=== PATIENT | male | born 1960 | race African-American/Black ===

== ENCOUNTER 2020-01-16 11:05 | Inpatient (IN) | payer OTHER ==
[~2020-01-16] VITALS: Ht 203.2 cm; Wt 146.0 kg
[~2020-01-16 11:05] MED LIST: CIP500T GT; FURO1TAB31 PO; POTA10TA51 PO
[2020-01-16] MEDS ORDERED: SODIUM CHLORIDE 0.9% 1,000 ML IVB ONE (13:02)
[2020-01-16] MEDS ORDERED: ONDANSETRON HCL 4 MG/2 ML VIAL IV ONE (13:15)
[2020-01-16] MEDS ORDERED: MORPHINE SULF INJ 2 MG/ML SYRINGE 1ML IV ONE (13:15)
[2020-01-16] MEDS ORDERED: cefTRIAXone 1GM/50ML D5W 50 ML IV ONE (13:15)
[2020-01-16 14:04] LABS: Basophils # (auto) 0 10 ^3/uL (0-0.2); Eosinophils # (auto) 0.1 10 ^3/uL (0-0.8); Eosinophils % (auto) 0.4 % (0.0-7.0); Hematocrit 37.8 % (41.0-53.0); Hemoglobin 12.1 g/dL (13.5-17.5); Lymphocytes # (auto) 0.6 10 ^3/uL (0.4-5.4); Lymphocytes % (auto) 3.9 % (10.0-50.0); Mean Corpuscular Hemoglobin 29.1 pg (28.0-32.0); Mean Corpuscular Volume 91.1 fL (80.0-100.0); Monocytes # (auto) 1.3 10 ^3/uL (0-1.3); Monocytes % (auto) 9.3 % (0.0-12.0); Neutrophils # (auto) 12.5 10 ^3/uL (1.6-8.6); Neutrophils % (auto) 86.4 % (37.0-80.0); Platelet Count (auto) 191 10^3/uL (140-450); Red Blood Cells 4.15 10^6/uL (4.5-5.90); White Blood Cell 14.5 10^3/uL (4.4-10.8)
[2020-01-16 14:28] LABS: Albumin 2.4 g/dL (3.4-5.0); Calcium 8.1 mg/dL (8.5-10.1); Potassium 3.2 mmol/L (3.5-5.1)
[2020-01-16 14:31] LABS: BUN/Creatinine Ratio 8.7; Bilirubin, Total 1.4 mg/dL (0.2-1.0); Total Protein 7.9 g/dL (6.4-8.2)
[2020-01-16 14:44] LABS: INR 1.04 (0.9-1.15); Partial Thromboplastin Time 28.1 sec (23.64-32.05)
[2020-01-16] MEDS ORDERED: POTASSIUM CHL 20 Meq TABLET PO ONE (15:00)
[2020-01-16] MEDS ORDERED: VANCOMYCIN PER PHARMACY 0 MG IV SCH (15:15)
--- NOTE | 2020-01-16 16:42 | NUR ---
RECEIVED REPORT FROM RUPALI SPENCE IN ER. AWAITING PATIENTS ARRIVAL TO FLOOR
--- NOTE | 2020-01-16 17:00 | NUR ---
PATIENT IN ROOM ON [facility] FLOOR. PATIENT HAS 2 GUARDS AT BEDSIDE. NO DISTRESS NOTED AT THIS TIME. PATIENT IS ALERT AND ORIENTED X 4 WITH NO DISTRESS, SOB OR PAIN NOTED. VITALS WNL.
[2020-01-16 17:15] VITALS: BP 126/68
[2020-01-16] MEDS: VANCOMYCIN 1GM/250ML 250 ML IV SCH ×2 (17:59→23:03)
[2020-01-16 18:11] VITALS: BP 126/68
--- NOTE | 2020-01-16 19:00 | NUR ---
Assessed skin, did wound care and took wound photos.
--- NOTE | 2020-01-16 19:05 | NUR ---
Opening Shift Note Assumed care of patient, awake and alert. No S/S of distress/SOB or pain. Instructed on POC and to call for assist PRN, will continue to monitor for changes Q1hr and PRN. Patient in the lowest possible position with call light within reach. Addendum: 01/16/20 at 2143 by Sara Sapp RN guards at bedside.
[2020-01-16 19:36] LABS: Urine Bacteria FEW /hpf (None Seen); Urine Blood 1+ /uL (Negative); Urine Mucus FEW (None Seen); Urine WBC 5 /hpf (0 - 3)
[2020-01-16 20:00] VITALS: BP 121/59
[2020-01-16] MEDS: BACLOFEN 10 MG TAB PO SCH (21:28)
[2020-01-16] MEDS: POTASSIUM CHL 20 Meq TABLET PO SCH (21:28)
--- NOTE | 2020-01-16 21:30 | NUR ---
Skin was assessed, Optifoam applied to ankle near cuffs to prevent any skin tears, everywhere else was properly dressed and secured. Waiting for wound care to evaluate patient in the AM, day nurse assessed, took photos, and dressed. Patient states that his cellulitis is going down with the use of the antibiotics. Will continue to monitor lower extremities.
[2020-01-16 22:00] VITALS: BP 121/59
[2020-01-16] MEDS ORDERED: FUROSEMIDE 20 MG/2 ML VIAL IV SCH (22:00)
--- NOTE | 2020-01-16 23:45 | NUR ---
Condom cath applied since Marie was not recommended per physician. Per physician condom cath was okay to put on patient. Patient is taking Lasix. Will continue to monitor patient.
--- NOTE | 2020-01-17 03:42 | NUR ---
Patient used bedside commode to poop, condom cath fell off.
[2020-01-17 05:00] VITALS: BP 124/56
[2020-01-17] MEDS: VANCOMYCIN 1GM/250ML 250 ML IV SCH ×4 (05:14→23:16)
--- NOTE | 2020-01-17 08:00 | NUR ---
Opening Shift Note Assumed care of patient, awake, alert and oriented. No S/S of distress/SOB or pain. Instructed on POC and to call for assist PRN. Bed locked, in lowest position, call light within reach, side rails up x2. Will continue to monitor for changes Q1hr and PRN.
--- NOTE | 2020-01-17 08:05 | NUR ---
Call received from [facility] for update on patient. Password verified, update given, verbalized understanding.
[2020-01-17] MEDS ORDERED: FUROSEMIDE 100 MG/10ML VIAL IV SCH (08:46)
[2020-01-17 09:28] VITALS: BP 115/60
[2020-01-17] MEDS: BACLOFEN 10 MG TAB PO SCH ×2 (11:14→21:22)
[2020-01-17] MEDS: ENOXAPARIN SOD 150 MG/1 ML SYRINGE SC SCH (11:14)
[2020-01-17] MEDS: POTASSIUM CHL 20 Meq TABLET PO SCH ×2 (11:16→21:22)
--- NOTE | 2020-01-17 12:30 | NUR ---
WOUND CARE NOTE: IN TO SEE PATIENT AT THIS TIME PER WOUND CARE CONSULT REQUEST. PATIENT ADMITTED TO [facility] WITH DIAGNOSIS OF CELLULITIS, BILATERAL LOWER EXTREMITY EDEMA. CURRENT KISHORE SCORE IS 15. PATIENT NOTED TO HAVE MULTIPLE WOUNDS UPON ADMIT, ALL WOUNDS PHOTOGRAPHED AT THAT TIME BY BEDSIDE NURSE FOR REFERENCE. PATIENT STATES THAT HE HAS HAD SKIN/WOUND ISSUES TO HIS BLE FOR MANY YEARS. CURRENTLY, HIS WOUNDS HAVE WORSENED. PATIENT IS NOTED TO HAVE A LARGE SERUM FILLED BLISTER TO ENTIRE LEFT PLANTAR, LATERAL,MEDIAL FOOT. SKIN IS WHITE WITH MACERATION. THERE IS A CHRONIC STASIS ULCER TO THE LEFT DORSAL FOOT, AND AN OPEN SKIN TEAR TO THE LEFT LATERAL FOOT. LEFT FOOT/MASON IS EDEMATOUS, WITH ERYTHEMA, WEEPING OF THE TISSUES. CLEANSED ALL AREAS WITH WOUND CLEANSER, PATTED DRY WITH STERILE GAUZE. APPLIED THERAHONEY GAUZE. COVERED WITH MULTIPLE ABD PADS. WRAPPED FOOT/ANKLE/LOWER MASON WITH KERLIX, SECURED WITH TAPE. NEW WOUND PHOTO TAKEN AT THIS TIME FOR REFERENCE. RIGHT MASON/ANKLE HAS MULTIPLE VENOUS STASIS ULCERATIONS OVER EDEMA, ERYTHEMA. CLEANSED ALL WITH WOUND CLEANSER, PATTED DRY WITH STERILE GAUZE. APPLIED THERAHONEY, OPTIFOAM GENTLE DRESSINGS. WOUND PHOTOS TAKEN OF THESE WOUNDS PER PROTOCOL. ALL WOUND STATS CAN BE FOUND IN WOUND ASSESSMENT, LINKED WITH THIS NOTE. RECOMMEND: PODIATRY CONSULT FOR BLE, DAILY/PRN DRESSING CHANGES WITH THERAHONEY, ABD PADS, KERLIX WRAPS, BID APPLICATION WITH MOISTURE BARRIER CREAM, OPTIFOAM GENTLE SACRAL DRESSING PREVENTATIVE, SKIN/WOUND CARE PLAN, DIETARY CONSULT, CONTINUED MONITORING BY WOUND CARE TEAM. Addendum: 01/17/20 at 1617 by Renée Ruiz RN Amended: Links added.
[2020-01-17 13:34] LABS: Basophils # (auto) 0 10 ^3/uL (0-0.2); Basophils % (auto) 0.4 % (0.0-2.0); Eosinophils # (auto) 0.6 10 ^3/uL (0-0.8); Eosinophils % (auto) 5.5 % (0.0-7.0); Hematocrit 35.3 % (41.0-53.0); Hemoglobin 11.5 g/dL (13.5-17.5); Lymphocytes # (auto) 0.9 10 ^3/uL (0.4-5.4); Lymphocytes % (auto) 8.6 % (10.0-50.0); Mean Corpuscular Hemoglobin 29.6 pg (28.0-32.0); Mean Corpuscular Hgb Conc. 32.7 g/dL (32.0-36.0); Mean Corpuscular Volume 90.7 fL (80.0-100.0); Monocytes # (auto) 0.9 10 ^3/uL (0-1.3); Monocytes % (auto) 8.4 % (0.0-12.0); Neutrophils # (auto) 8.3 10 ^3/uL (1.6-8.6); Neutrophils % (auto) 77.1 % (37.0-80.0); Nucleated Red Blood Cells % 0.1 %; Platelet Count (auto) 192 10^3/uL (140-450); Red Blood Cells 3.89 10^6/uL (4.5-5.90); Red Cell Distribution Width 14.3 % (11.8-14.3); White Blood Cell 10.8 10^3/uL (4.4-10.8)
[2020-01-17 13:50] LABS: BUN/Creatinine Ratio 8.1; Calcium 7.6 mg/dL (8.5-10.1); Potassium 3.5 mmol/L (3.5-5.1)
[2020-01-17 13:57] VITALS: BP 108/55
[2020-01-17 16:35] VITALS: BP 93/52
[2020-01-17] MEDS: FUROSEMIDE 100 MG/10ML VIAL IV SCH (17:59)
--- NOTE | 2020-01-17 19:21 | NUR ---
Care endorsed to JORDY Reyes, night nurse.
--- NOTE | 2020-01-17 20:20 | NUR ---
open note assumed care of pt. upon entering room pt awake, alert and oriented x4. pt has guards at bedside. pt on room air no distress noted or expressed. pt denies any pain. pt updated on plan of care. pt has dressings to bilat lower extremities, all clean dry and intact. pt bed locked, low and 2x rails up. call light in reach, this nurse to round q1hr and prn.
[2020-01-17 21:00] VITALS: BP 99/55
[2020-01-18 04:30] VITALS: BP 120/64
[2020-01-18] MEDS: VANCOMYCIN 1GM/250ML 250 ML IV SCH ×2 (05:39→15:12)
[2020-01-18] MEDS: FUROSEMIDE 100 MG/10ML VIAL IV SCH ×2 (05:40→17:30)
--- NOTE | 2020-01-18 08:00 | NUR ---
Opening Shift Note Assumed care of patient, awake and alert. No S/S of distress/SOB or pain. Instructed on POC and to call for assist PRN, will continue to monitor for changes Q1hr and PRN.
[2020-01-18 08:45] VITALS: BP 107/54
[2020-01-18] MEDS: POTASSIUM CHL 20 Meq TABLET PO SCH ×2 (09:47→22:17)
[2020-01-18] MEDS: ENOXAPARIN SOD 150 MG/1 ML SYRINGE SC SCH (09:47)
[2020-01-18] MEDS: BACLOFEN 10 MG TAB PO SCH ×2 (10:05→22:17)
[2020-01-18 12:30] VITALS: BP 114/56
--- NOTE | 2020-01-18 15:31 | NUR ---
Nutrition Assessment Notes Please refer to link for full assessment notes. Est Energy needs: 5350-2518 kcals (14-17 kcal/kgBW) Est Protein needs: 138-173 gms/day (1.2-1.5 gm/kgAdjBW) Will continue to monitor and reassess prn. Addendum: 01/18/20 at [address] Amended: Links added.
--- NOTE | 2020-01-18 16:25 | NUR ---
Spoke with Dr. Pineda, updated on the current status of the patient and results of the tests. Orders received for cardiology consult to call in for Dr. Pizarro.
[2020-01-18 16:40] VITALS: BP 116/62
--- NOTE | 2020-01-18 19:35 | NUR ---
Opening Shift Note Assumed care of patient, awake and alert and sitting up in bed. No S/S of distress/SOB or pain. Guards at bedside. Instructed on POC and to call for assist PRN, will continue to monitor for changes Q1hr and PRN.
[2020-01-18 21:45] VITALS: BP 111/52
[2020-01-19] MEDS: VANCOMYCIN 1GM/250ML 250 ML IV SCH ×3 (01:13→17:28)
--- NOTE | 2020-01-19 02:15 | NUR ---
WOUND CARE OFFERED PT PAIN MEDICATION BEFORE DRESSING CHANGE. PT DECLINED. CLEANSED ALL AREAS WITH WOUND CLEANSER, PATTED DRY WITH STERILE GAUZE. APPLIED THERAHONEY GAUZE. COVERED WITH MULTIPLE ABD PADS. WRAPPED FOOT/ANKLE/LOWER MASON WITH KERLIX, SECURED WITH TAPE. PT TOLERATED WELL.
[2020-01-19 05:04] VITALS: BP 113/62
[2020-01-19] MEDS: FUROSEMIDE 100 MG/10ML VIAL IV SCH ×4 (05:55→22:02)
--- NOTE | 2020-01-19 06:34 | NUR ---
CLOSING NOTE PT. IS UPRIGHT IN BED. HE IS SLEEPING. GUARDS AT BEDSIDE. ENDORSED TO DAY RN.
--- NOTE | 2020-01-19 07:45 | NUR ---
Opening Shift Note Assumed care of patient, awake, alert, and oriented. No S/S of distress/SOB or pain. Bed in lowest/locked position, bed rails up x2, call light within reach. Guards at bedside. Instructed on POC and to call for assist PRN. Will continue to monitor for changes Q1hr and PRN.
[2020-01-19 08:48] VITALS: BP 102/55
[2020-01-19] MEDS: ENOXAPARIN SOD 150 MG/1 ML SYRINGE SC SCH (08:59)
[2020-01-19] MEDS: POTASSIUM CHL 20 Meq TABLET PO SCH ×4 (08:59→22:01)
[2020-01-19] MEDS: BACLOFEN 10 MG TAB PO SCH ×2 (08:59→22:01)
--- NOTE | 2020-01-19 11:40 | NUR ---
MD ROUNDS DR FOWLER AT BEDSIDE DISCUSSING POC WITH PATIENT. NO NEW ORDERS RECEIVED AT THIS TIME. WILL CONTINUE TO MONITOR
--- NOTE | 2020-01-19 11:55 | NUR ---
PHARMACY RECEIVED PHONE CALL FROM PHARMACY RE: PATIENT WOUND CULTURE SHOWING GRAM NEGATIVE RODS. PER PHARMACIST INFORM MD TO ASSESS ANTIBIOTIC ADMINISTRATION. DR FOWLER AT NURSING STATION MADE AWARE OF GRAM NEGATIVE RODS. NEW ORDERS RECEIVED/ WILL CARRY OUT. WILL CONTINUE TO MONITOR
[2020-01-19 13:00] VITALS: BP 100/52
[2020-01-19] MEDS: PIPERACILLIN-TAZOB 3.375GM 100 ML IV SCH ×2 (13:14→18:27)
[2020-01-19 17:00] VITALS: BP 125/64
--- NOTE | 2020-01-19 19:45 | NUR ---
OPENING NOTE RN ENDORSED PT. CARE. PT. ASLEEP IN BED. GUARDS AT BEDSIDE. DID NOT WAKE. WILL CONTINUE TO MONITOR.
[2020-01-19 22:00] VITALS: BP 116/66
[2020-01-20] MEDS: PIPERACILLIN-TAZOB 3.375GM 100 ML IV SCH ×4 (00:04→17:32)
--- NOTE | 2020-01-20 00:35 | NUR ---
WOUND CARE REMOVED OLD DRESSINGS AND CLEANSED ALL AREAS WITH WOUND CLEANSER. PATTED DRY WITH STERILE GAUZE. APPLIED THERAHONEY GAUZE. MOISTURE BARRIER CREAM LOTION APPLIED TO DRY AREAS. COVERED WITH MULTIPLE ABD PADS. WRAPPED FOOT/ANKLE/LOWER MASON WITH KERLIX, SECURED WITH TAPE. PT TOLERATED WELL.
[2020-01-20] MEDS: VANCOMYCIN 1GM/250ML 250 ML IV SCH ×2 (02:14→09:52)
[2020-01-20 04:00] VITALS: BP 110/57
[2020-01-20] MEDS: FUROSEMIDE 100 MG/10ML VIAL IV SCH ×3 (05:40→21:54)
[2020-01-20] MEDS: POTASSIUM CHL 20 Meq TABLET PO SCH ×3 (05:41→21:55)
[2020-01-20 09:00] VITALS: BP 105/62
[2020-01-20 09:09] LABS: Basophils # (auto) 0 10 ^3/uL (0-0.2); Basophils % (auto) 0.6 % (0.0-2.0); Eosinophils # (auto) 0.4 10 ^3/uL (0-0.8); Eosinophils % (auto) 7.9 % (0.0-7.0); Hematocrit 34.4 % (41.0-53.0); Hemoglobin 11.4 g/dL (13.5-17.5); Lymphocytes # (auto) 0.8 10 ^3/uL (0.4-5.4); Mean Corpuscular Hemoglobin 30.2 pg (28.0-32.0); Mean Corpuscular Hgb Conc. 33.3 g/dL (32.0-36.0); Mean Corpuscular Volume 90.7 fL (80.0-100.0); Monocytes # (auto) 0.4 10 ^3/uL (0-1.3); Monocytes % (auto) 7.9 % (0.0-12.0); Neutrophils # (auto) 3.6 10 ^3/uL (1.6-8.6); Neutrophils % (auto) 68.6 % (37.0-80.0); Nucleated Red Blood Cells % 0.1 %; Platelet Count (auto) 246 10^3/uL (140-450); Red Blood Cells 3.79 10^6/uL (4.5-5.90); Red Cell Distribution Width 14.3 % (11.8-14.3); White Blood Cell 5.3 10^3/uL (4.4-10.8)
[2020-01-20 09:20] LABS: BUN/Creatinine Ratio 10.6; Calcium 7.7 mg/dL (8.5-10.1); Potassium 3.7 mmol/L (3.5-5.1)
[2020-01-20] MEDS: ENOXAPARIN SOD 150 MG/1 ML SYRINGE SC SCH (09:52)
[2020-01-20] MEDS: BACLOFEN 10 MG TAB PO SCH ×2 (09:52→21:55)
[2020-01-20 13:00] VITALS: BP 105/51
--- NOTE | 2020-01-20 13:30 | NUR ---
PAIN PATIENT C/O "SPINE PAIN, RADIATING PRESSURE, 03/28." WILL MEDICATE PER MD ORDERS
[2020-01-20] MEDS: HYDROcodone-ACET 10/325MG TAB PO PRN (13:41)
[2020-01-20 17:04] VITALS: BP 98/54
--- NOTE | 2020-01-20 19:16 | NUR ---
Opening Shift Note Assumed care of patient, awake and alert. No S/S of distress/SOB or pain. Instructed on POC and to call for assist PRN, will continue to monitor for changes Q1hr and PRN. Side rails up x2. Bed locked in lowest position. Call light within reach. 2 guards at bedside. Handcuffs on right wrist and bilateral ankles.
[2020-01-20 22:00] VITALS: BP 99/53
[2020-01-21] MEDS: PIPERACILLIN-TAZOB 3.375GM 100 ML IV SCH ×5 (00:57→23:59)
[2020-01-21 05:00] VITALS: BP 113/56
--- NOTE | 2020-01-21 05:00 | NUR ---
Dressing changed on bilateral foot. Patient tolerated well.
[2020-01-21] MEDS: POTASSIUM CHL 20 Meq TABLET PO SCH ×3 (05:50→21:55)
[2020-01-21] MEDS: FUROSEMIDE 100 MG/10ML VIAL IV SCH ×3 (05:51→22:00)
[2020-01-21] MEDS: HYDROcodone-ACET 10/325MG TAB PO PRN ×3 (05:52→22:48)
[2020-01-21 07:31] LABS: BUN/Creatinine Ratio 15.2; Calcium 7.9 mg/dL (8.5-10.1); Potassium 4.2 mmol/L (3.5-5.1)
--- NOTE | 2020-01-21 07:37 | NUR ---
Endorsed care to day shift RN.
--- NOTE | 2020-01-21 08:17 | NUR ---
TAKEN VIA WHEEL CHAIR TO NUCLEAR MEDICINE FOR BONE SCAN. NO SIGNS OF DISTRESS.
[2020-01-21 09:00] VITALS: BP 96/54
[2020-01-21] MEDS: BACLOFEN 10 MG TAB PO SCH ×3 (09:34→21:56)
[2020-01-21] MEDS: ENOXAPARIN SOD 150 MG/1 ML SYRINGE SC SCH (09:34)
[2020-01-21] MEDS: levoFLOXacin 500 MG TAB PO SCH ×2 (09:35→13:46)
[2020-01-21] MEDS ORDERED: fentaNYL CITRATE 100 MCG/2 ML VL ONE (10:18)
[2020-01-21] MEDS ORDERED: ANGIOMAX 250 MG VIAL IV ONE (10:18)
[2020-01-21] MEDS ORDERED: MIDAZOLAM HCL 1MG/1ML-2 ML VIAL ONE (10:19)
[2020-01-21] MEDS ORDERED: LIDOCAINE 2%HCL (LOCAL ANESTH.) INJ 20ML MDV ONE (10:19)
[2020-01-21] MEDS ORDERED: IODIXANOL 320MG/ML 100ML BTL IV ONE (10:19)
[2020-01-21] MEDS ORDERED: SODIUM CHL 0.9% 0 ML ONE (10:19)
[2020-01-21] MEDS ORDERED: VERAPAMIL 2.5MG/ML INJ 2ML VIAL IV ONE (10:34)
[2020-01-21] MEDS ORDERED: diphenhdrAMINE HCL 50 MG/1 ML VL ONE (10:39)
[2020-01-21] MEDS ORDERED: HYDROmorphone HCL 2 MG/ML VL ONE (10:46)
[2020-01-21] MEDS ORDERED: HEPARIN SODIUM (PORCINE) 5000 UNITS/ML 1ML VIAL ONE (10:57)
[2020-01-21 13:00] VITALS: BP 129/79
[2020-01-21 17:00] VITALS: BP 110/61
--- NOTE | 2020-01-21 19:45 | NUR ---
Opening shift note Assumed care of patient. Patient sitting up A&Ox4, respirations even and non-labored with no s/s of distress. Discussed POC with patient who verbalized understanding. Dressing CDI, IV flushed, patent, and intact. Bed lowered/locked with 2 side rails up. Guards bedside, Call light within reach. Will continue to monitor.
[2020-01-21 22:00] VITALS: BP 94/49
--- NOTE | 2020-01-21 22:49 | NUR ---
Pain Patient c/o 7/10 pain to his left lower leg. Administered [place] 10/325 mg per EMAR. Will continue to monitor.
--- NOTE | 2020-01-21 23:53 | NUR ---
Pain reassessed: Patient resting with eyes closed, respirations even and non-labored with no s/s of distress. Will continue to monitor.
[2020-01-22 05:00] VITALS: BP 93/54
--- NOTE | 2020-01-22 05:00 | NUR ---
Dressing change: Dressings changed to bilateral lower extremities. Patient tolerated well.
[2020-01-22] MEDS: POTASSIUM CHL 20 Meq TABLET PO SCH ×3 (05:50→22:42)
[2020-01-22] MEDS: PIPERACILLIN-TAZOB 3.375GM 100 ML IV SCH ×4 (05:51→23:47)
[2020-01-22] MEDS: FUROSEMIDE 100 MG/10ML VIAL IV SCH ×3 (05:51→22:42)
--- NOTE | 2020-01-22 06:57 | NUR ---
End of Shift Note Endorsed care to Danelle SPENCE. At this time patient has no s/s of distress or SOB. Patient is alert and oriented x4. No complaints at this time.
--- NOTE | 2020-01-22 07:18 | NUR ---
AWAKE ALERT ORIENTED TIMES 4 DENIES ANY PAIN AT THIS TIME. AWAITING FOLLOW UP WITH DR PALMER TODAY.
[2020-01-22 09:00] VITALS: BP 102/53
[2020-01-22] MEDS: BACLOFEN 10 MG TAB PO SCH ×2 (09:46→22:42)
[2020-01-22] MEDS: ENOXAPARIN SOD 150 MG/1 ML SYRINGE SC SCH (09:46)
[2020-01-22] MEDS: levoFLOXacin 500 MG TAB PO SCH (09:46)
--- NOTE | 2020-01-22 11:00 | NUR ---
DR PALMER AT BEDSIDE DISCUSSED PLAN OF CARE WITH PATIENT PICC LINE FOR 6 WEEKS IV ANTIBIOTICS AND AMPUTATION OF RIGHT FOURTH TOE. PATIENT AGREED AND VERBALIZED UNDERSTANDING.
--- NOTE | 2020-01-22 12:16 | NUR ---
Nutrition Follow-up Notes Wt.: 144.8 kg Pt was sleeping with no family by bedside. per RN pt with no distress noted. pt to have sx tomorrow per notes. pt is currently on regular diet with adequate PO of > 75% x 6 per RN doc Est. Needs: 5779-3136 kcals (14-17 kcal/kgBW) 138-173 gms/day/kg Adj BW. Will continue to monitor pertinent labs and reassess nutrient need prn. Labs: CA 7.9 L. rest lab wnl Skin: Morgan scale 15 mod risk, pt with wounds per pressurised container filler. refer to WC notes for details GI: Pt had 1 BM on 01/21 per pressurised container filler. PES: 1) Obesity r/t energy intake in excess of energy needs aeb 149% IBW and BMI of 37.0 kg/m2 2) Altered nutrition related lab values r/t current medical condition elev bili, hypocalc, hypoalb Will continue to monitor PO intake, skin status, pertinent labs and weight trend. F/u in 3-5 days. Rec: 1) Continue to closely monitor pt PO intake to meet at least 75% of meals. 2) Suggest 2g Na diet in lieu of the current diet order. 3) Consider a MVI with 500mg VitC BID. 4) Continue current plan of care
[2020-01-22 13:00] VITALS: BP 96/56
[2020-01-22 13:37] LABS: INR 1.12 (0.9-1.15); Partial Thromboplastin Time 25.5 sec (23.64-32.05)
[2020-01-22] MEDS ORDERED: OPTISON 3ml Vial for INJ IV ONE (14:24)
[2020-01-22] MEDS ORDERED: LIDOCAINE 1% (LOCAL ANESTH.) PF 5ml SDV ID ONE (16:00)
--- NOTE | 2020-01-22 16:00 | NUR ---
PICC line placement Patient educated on need for PICC line placement. All risks and benefits explained and all questions and concerns addressed prior to procedure. Noted past medical history and allergies with no contraindications. INR and Plt counts within acceptable range. 4 fr PICC line inserted via RIGHT BRACHIAL vein using [email or web address]'s [employer] US and Tip Location System. Sterile technique with maximum barrier precautions utilized. Blood return obtained from each lumen and each flushed easily with NS using proper technique. PICC secured with Stat-lock; biodisc and occlusive dressing applied. Stat portable chest x-ray obtained for PICC tip placement. *Baseline Arm Circumference 39CM. INTERNAL LENGTH 44 CM. EXTERNAL LENGTH 0CM. PICC lot # [id number]. Note:
--- NOTE | 2020-01-22 16:49 | NUR ---
OK to use PICC line Xray completed. OK to use PICC line. PRIMARY RN NOTIFIED
[2020-01-22 16:55] VITALS: BP 110/73
[2020-01-22] MEDS: HYDROcodone-ACET 10/325MG TAB PO PRN (20:18)
--- NOTE | 2020-01-22 20:44 | NUR ---
1900 REPORT OBTAINED ON PATIENT. 1999. PATIENT SEEN. AWAKE AND ALERT. COMPAINED OF PAIN BACK 02/26 2018 PATIENT MEDICATED FOR PAIN. NORCO ONE TABLET.
[2020-01-22 22:00] VITALS: BP 104/58
[2020-01-22] MEDS: SODIUM CHLOR 0.9% PF (SALINE LOCK) 10ML VIAL/SYR IV SCH (22:29)
--- NOTE | 2020-01-23 02:19 | NUR ---
PATIENT SLEEPING AT THIS TIME.
[2020-01-23 05:00] VITALS: BP 103/58
--- NOTE | 2020-01-23 05:12 | NUR ---
0450. PATIENT AWAKE. DENIED PAIN. PARTIAL BED BATH GIVEN ALONG WITH CHLORHEXIDINE WIPES.
[2020-01-23] MEDS: PIPERACILLIN-TAZOB 3.375GM 100 ML IV SCH ×3 (05:28→20:41)
[2020-01-23] MEDS: FUROSEMIDE 100 MG/10ML VIAL IV SCH ×3 (05:28→22:51)
[2020-01-23] MEDS: POTASSIUM CHL 20 Meq TABLET PO SCH ×3 (05:29→22:50)
--- NOTE | 2020-01-23 06:02 | NUR ---
0600. WOUND DRESSING CHAGE DONE RIGHT ANTERIOR LEG AND RIGHT FOOT.
--- NOTE | 2020-01-23 08:00 | NUR ---
RECEIVED PATIENT ALERT AND ORIENTED X4, NOT IN DISTRESS, CLEAR LS IN BILATERAL LUNG LOBED, RR=18, SAT=98%, DEEP BREATHING AND COUGHING ENCOURAGED, DEMONSTRATED WELL, HEART R=64, DENIED CHEST PAIN OR SOB AT THIS MOMENT, ABDOMEN SOFT WITH ACTIVE BS, LAST BM=01/22/20 REPORTED, KEEP NPO ORDERED, SKIN INTACT WARM TO TOUCH, RADIAL PULSES PALPABLE, CAP REFILL<3 SECONDS,BILATERAL LOWER EXTREMITIES CELLULITES AND EDEMA NOTED, RT, LEG AND FOOT WOUNDS COVERED WITH DRY AND INTACT DRESSING, RESTING ON BED, DENIED PAIN, HEAD OF BED ELEVATED, BED ON LOW POSITION, RAILS UP X2, CALL LIGHT ON REACH, PENDING PENDING OR, WILL CONTINUE MONITORING.
--- NOTE | 2020-01-23 08:30 | NUR ---
PRE OP WAS CONTACTED FOR PROCEDURE SCHEDULE FOLLOW UP, SCHEDULED 10:30 AM REPORTED, WILL CONTINUE MONITORING.
[2020-01-23 09:00] VITALS: BP 113/70
[2020-01-23] MEDS: SODIUM CHLOR 0.9% PF (SALINE LOCK) 10ML VIAL/SYR IV SCH ×2 (10:00→22:50)
[2020-01-23] MEDS: BACLOFEN 10 MG TAB PO SCH ×2 (10:00→15:24)
[2020-01-23] MEDS: ENOXAPARIN SOD 150 MG/1 ML SYRINGE SC SCH (10:00)
--- NOTE | 2020-01-23 10:30 | NUR ---
CHECK LIST AND CONSENT ON CHART, NOT IN DISTRESS, DENIED PAIN, WENT ON BED TO PRE OP, TOLERATED WELL, WILL CONTINUE TO FOLLOW UP.
[2020-01-23] MEDS ORDERED: ceFAZolin 1GM/50ML 50 ML IV ONE (10:52)
[2020-01-23] MEDS ORDERED: MIDAZOLAM HCL 1MG/1ML-2 ML VIAL ONE (12:19)
[2020-01-23] MEDS ORDERED: MEPERIDINE HCL (25 MG/ML) 1ML VIAL ONE (12:19)
[2020-01-23] MEDS ORDERED: fentaNYL CITRATE 100 MCG/2 ML VL ONE (12:19)
[2020-01-23] MEDS ORDERED: ceFAZolin 1GM VL ONE (12:25)
[2020-01-23] MEDS ORDERED: ROPIVACAINE 0.5% (5MG/ML) 20ML AMPULE IJ ONE (12:25)
[2020-01-23] MEDS ORDERED: PROPOFOL 10 MG/ML 20 ML IV ONE (12:33)
[2020-01-23] MEDS ORDERED: DexAMETHasone SOD PHOS 10MG/1ML VIAL INJ ONE (12:33)
--- NOTE | 2020-01-23 14:37 | NUR ---
CAME BACK FROM OR, ALERT AND ORIENTED, NOT IN DISTRESS, PAIN L=2/10 REPORTED, LT, FOOT FORTH DIGIT TOE AMPUTATION SITE COVERED WITH DRY AND INTACT DRESSING, VS T=98.1 RR=16 RIK=681% P=70 DX=277/72, RESTING ON BED, DIETARY WAS CONTACTED FOR LUNCH TRSY, TRAY WILL BE PROVIDED REPORTED, HEAD OF BED ELEVATED, RAILS UP X2, CALL LIGHT ON REACH REPORTED, WILL CONTINUE MONITORING.
[2020-01-23] MEDS: levoFLOXacin 500 MG TAB PO SCH (15:22)
[2020-01-23 16:47] VITALS: BP 116/78
[2020-01-23] MEDS: HYDROcodone-ACET 10/325MG TAB PO PRN (18:54)
--- NOTE | 2020-01-23 19:43 | NUR ---
RESTING ON BED, NOT IN DISTRESS, REPORT WAS GIVEN TO THE CABLE ENGINEER RN.
--- NOTE | 2020-01-23 19:59 | NUR ---
193. RECEIVED REPORT ON PATIENT. PATIENT HAD SURGERY TODAY. 1999. PATIENT SEEN. FEELS WELL. NO PAINS CURRENTLY. DRESSING AT SURGICAL SITE CLEAR AND DRY.
[2020-01-23 22:08] VITALS: BP 104/53
[2020-01-24] MEDS: PIPERACILLIN-TAZOB 3.375GM 100 ML IV SCH ×4 (02:45→21:42)
--- NOTE | 2020-01-24 02:55 | NUR ---
0243. PATIENT SLEEPING AT THIS TIME.
[2020-01-24 05:00] VITALS: BP 106/57
[2020-01-24] MEDS: POTASSIUM CHL 20 Meq TABLET PO SCH ×3 (05:52→21:43)
[2020-01-24] MEDS: FUROSEMIDE 100 MG/10ML VIAL IV SCH ×4 (05:53→22:00)
[2020-01-24 08:00] VITALS: BP 111/69
--- NOTE | 2020-01-24 08:00 | NUR ---
Opening Shift Note Assumed care of patient, who is alert and oriented x4. No S/S of distress/SOB or pain. Respirations are even and unlabored. Bed is low, locked with 2x side rails up. Call light is within reach. Instructed on POC and to call for assist PRN, will continue to monitor for changes Q1hr and PRN.
[2020-01-24] MEDS: levoFLOXacin 500 MG TAB PO SCH (09:18)
[2020-01-24] MEDS: ENOXAPARIN SOD 150 MG/1 ML SYRINGE SC SCH (09:18)
[2020-01-24] MEDS: SODIUM CHLOR 0.9% PF (SALINE LOCK) 10ML VIAL/SYR IV SCH ×2 (09:19→21:43)
[2020-01-24] MEDS: BACLOFEN 10 MG TAB PO SCH ×2 (09:19→21:43)
[2020-01-24 12:00] VITALS: BP 112/62
--- NOTE | 2020-01-24 12:03 | NUR ---
WOUND CARE NOTE: WOUND CARE TEAM IN TO SEE PATIENT FOR REASSESSMENT OF SKIN INTEGRITY ISSUES. PATIENT IS S/P AMPUTATION OF RIGHT #[address] PALMER. PATIENT HAS MULTIPLE HEALING ULCERS ON BILATERAL LOWER EXTREMITIES. CURRENTLY, ONLY OPEN WOUND IS TO THE PATIENT'S RIGHT MASON. WOUND CLEANSED WITH WOUND CLEANSER, PATTED DRY WITH STERILE GAUZE. THERAHONEY APPLIED AND COVERED WITH OPTIFOAM GENTLE DRESSING. RECOMMEND: CONTINUATION OF ALL WOUND CARE ORDERS ORDERED BY HOSPITALIST AND STEAM TABLE WORKER. SKIN/WOUND CARE PLAN. CONTINUED MONITORING BY WOUND CARE TEAM.
[2020-01-24 16:43] VITALS: BP 132/56
[2020-01-24] MEDS: HYDROcodone-ACET 10/325MG TAB PO PRN ×2 (16:58→21:44)
[2020-01-24 21:34] VITALS: BP 109/53
[2020-01-25] MEDS: PIPERACILLIN-TAZOB 3.375GM 100 ML IV SCH ×4 (03:55→21:00)
[2020-01-25 05:36] VITALS: BP 114/66
[2020-01-25] MEDS: FUROSEMIDE 100 MG/10ML VIAL IV SCH ×3 (06:00→21:24)
[2020-01-25] MEDS: POTASSIUM CHL 20 Meq TABLET PO SCH ×3 (06:00→21:25)
--- NOTE | 2020-01-25 07:30 | NUR ---
Opening Shift Note Assumed care of patient, who is alert and oriented x4. No S/S of distress/SOB or pain. Respirations are even and unlabored. Guards at bedside. Bed is low, locked with 2x side rails up. Call light is within reach. Instructed on POC and to call for assist PRN, will continue to monitor for changes Q1hr and PRN.
[2020-01-25 09:00] VITALS: BP 132/70
[2020-01-25] MEDS: BACLOFEN 10 MG TAB PO SCH ×2 (09:19→21:25)
[2020-01-25] MEDS: levoFLOXacin 500 MG TAB PO SCH (09:19)
[2020-01-25] MEDS: ENOXAPARIN SOD 150 MG/1 ML SYRINGE SC SCH (09:19)
--- NOTE | 2020-01-25 10:30 | NUR ---
Wound care Wound care on right 4th toe done per MD orders. This nurse also applied hydraguard to both BLE. Patient tolerated well. Will continue to monitor.
[2020-01-25 12:48] VITALS: BP 108/61
[2020-01-25] MEDS: SODIUM CHLOR 0.9% PF (SALINE LOCK) 10ML VIAL/SYR IV SCH ×2 (16:14→21:25)
[2020-01-25 17:00] VITALS: BP 110/65
--- NOTE | 2020-01-25 17:26 | NUR ---
Rounds Patient resting comfortably in bed. Bed is low, locked and call light is within reach. Guards at bedside. Will continue to monitor.
--- NOTE | 2020-01-25 19:35 | NUR ---
assumed care, pt. awake, guards at bedside, dressing on rt. foot dry and intact, no c/o pain at this time, no sob.
[2020-01-25] MEDS: HYDROcodone-ACET 10/325MG TAB PO PRN (21:26)
[2020-01-25 22:00] VITALS: BP 123/70
[2020-01-26] VITALS (7 sets, daily range): BP systolic 97–120; BP diastolic 54–71
[2020-01-26] MEDS: PIPERACILLIN-TAZOB 3.375GM 100 ML IV SCH ×4 (02:30→21:33)
[2020-01-26] MEDS: POTASSIUM CHL 20 Meq TABLET PO SCH ×3 (05:30→21:34)
[2020-01-26] MEDS: FUROSEMIDE 100 MG/10ML VIAL IV SCH ×3 (05:31→21:35)
--- NOTE | 2020-01-26 07:32 | NUR ---
Opening Shift Note Assumed care of patient, awake and alert, and oriented x4. No S/S of distress/SOB, reports 6/10 pain on leg an requesting for [place]. Dressing on on right toe noted, CDI, no bleeding. Dressing change done 01/25/20. Dressing change order is every 2 days. Plan of care discussed, and encouraged to call for assist PRN. Bed is low, locked with 2x side rails up. Call light is within reach. will continue to monitor for changes Q1hr and PRN.
[2020-01-26] MEDS: BACLOFEN 10 MG TAB PO SCH ×2 (10:07→21:34)
[2020-01-26] MEDS: levoFLOXacin 500 MG TAB PO SCH (10:08)
[2020-01-26] MEDS: HYDROcodone-ACET 10/325MG TAB PO PRN (10:08)
[2020-01-26] MEDS: SODIUM CHLOR 0.9% PF (SALINE LOCK) 10ML VIAL/SYR IV SCH ×2 (10:09→21:34)
[2020-01-26] MEDS: ENOXAPARIN SOD 150 MG/1 ML SYRINGE SC SCH (10:09)
--- NOTE | 2020-01-26 13:36 | NUR ---
PT eval orders received. I spoke with patient regarding needs for physical therapy. He states he had a laminectomy several years ago which left him with BLE paresis. Pt verbalized understanding of importance of stretching and bed mobility to reduce adverse effects of immobilization. He states he has been able to transfer from the bed to the commode without difficulty during this hospital admission. Pt politely declined PT services. He was given black hand gripper to maintain hand strength while he is not using his wheelchair. Will sign off on patient. Pt was instructed to inform staff if transfers become increasingly difficult.
--- NOTE | 2020-01-26 16:10 | NUR ---
Nutrition Follow-up Notes Wt.: 144.8 kg Pt was sleeping with no family by bedside. per RN pt with no distress noted. Pt is currently on regular diet with adequate PO of > 92% x 3 per RN doc. Will continue to closely monitor pertinent labs, PO intake and skin status prn. Will followup in 3-5 days Est. Needs: 8454-7582 kcals (14-17 kcal/kgBW) 138-173 gms/day/kg Adj BW. Will continue to monitor pertinent labs and reassess nutrient need prn. Labs: Alb 2.4 L. rest lab wnl Skin: Morgan scale 17 mod risk, pt with wounds per internet marketing analyst. refer to WC notes for details GI: Pt had 1 BM on 01/25 per internet marketing analyst. PES: 1) Obesity r/t energy intake in excess of energy needs aeb 149% IBW and BMI of 37.0 kg/m2 2) Altered nutrition related lab values r/t current medical condition elev bili, hypocalc, hypoalb Will continue to monitor PO intake, skin status, pertinent labs and weight trend. F/u in 3-5 days. Rec: 1) Continue to closely monitor pt PO intake to meet at least 75% of meals. 2) Suggest 2g Na diet in lieu of the current diet order. 3) Consider a MVI with 500mg VitC BID. 4) Continue current plan of care
--- NOTE | 2020-01-26 19:20 | NUR ---
Opening Shift Note Assumed care of patient, awake and alert. No S/S of distress/SOB or pain. Instructed on POC and to call for assist PRN, will continue to monitor for changes Q1hr and PRN. PATIENT RESTING IN BED, MULTIPLE GUARDS AT BEDSIDE, BED IN LOWEST POSITION, SIDE RALES UP X2, CALL LIGHT WITHIN REACH.
[2020-01-27] MEDS: PIPERACILLIN-TAZOB 3.375GM 100 ML IV SCH ×4 (02:38→21:49)
[2020-01-27 05:00] VITALS: BP 112/68
[2020-01-27] MEDS: FUROSEMIDE 100 MG/10ML VIAL IV SCH ×3 (06:00→21:49)
[2020-01-27] MEDS: POTASSIUM CHL 20 Meq TABLET PO SCH ×3 (06:10→21:50)
--- NOTE | 2020-01-27 07:38 | NUR ---
Opening Shift Note Assumed care of patient from noc shift rn, awake and alert, and oriented x4. No S/S of distress/SOB, denies pain at this time. Instructed on POC and to call for assist PRN. Bed is low, locked with 2x side rails up. Call light is within reach. will continue to monitor for changes Q1hr and PRN.
[2020-01-27 08:00] VITALS: BP 129/70
[2020-01-27 08:30] VITALS: BP 129/70
[2020-01-27] MEDS: SODIUM CHLOR 0.9% PF (SALINE LOCK) 10ML VIAL/SYR IV SCH ×2 (09:23→21:50)
[2020-01-27] MEDS: BACLOFEN 10 MG TAB PO SCH ×2 (09:24→21:50)
[2020-01-27] MEDS: levoFLOXacin 500 MG TAB PO SCH (09:24)
[2020-01-27] MEDS: ENOXAPARIN SOD 150 MG/1 ML SYRINGE SC SCH (09:24)
[2020-01-27 13:00] VITALS: BP 108/60
[2020-01-27 17:00] VITALS: BP 112/55
--- NOTE | 2020-01-27 18:45 | NUR ---
WOUND CARE: DRESSING CHANGED PER DOCTORS ORDERS. DAWNA WELL APPROXIMATED. SEROSANGUINEOUS DRAINAGE NOTED. PATIENT TOLERATED WELL.
--- NOTE | 2020-01-27 19:30 | NUR ---
Opening Shift Note Assumed care of patient, awake and alert. No S/S of distress/SOB or pain. Instructed on POC and to call for assist PRN, will continue to monitor for changes Q1hr and PRN. PATIENT RESTING CALMLY IN BED, CALL LIGHT WITHIN REACH, MULTIPLE GUARDS AT BEDSIDE, BED IN LOWEST POSITION, SIDE RALES UP X3.
[2020-01-27 20:30] VITALS: BP 111/68
[2020-01-27] MEDS: HYDROcodone-ACET 10/325MG TAB PO PRN (21:56)
[2020-01-28] VITALS: BP 111/68
[2020-01-28] MEDS: PIPERACILLIN-TAZOB 3.375GM 100 ML IV SCH ×4 (03:01→22:03)
[2020-01-28 05:18] VITALS: BP 118/55
[2020-01-28] MEDS: FUROSEMIDE 100 MG/10ML VIAL IV SCH ×3 (06:00→22:00)
[2020-01-28] MEDS: POTASSIUM CHL 20 Meq TABLET PO SCH ×3 (06:36→22:02)
--- NOTE | 2020-01-28 07:34 | NUR ---
RECEIVED REPORT FROM NOC SHIFT RN. PATIENT ALERT AND ORIENTED X4. NO SOB/ S/S DISTRESS OR PAIN REPORTED. PLAN OF CARE DISCUSSED WITH PATIENT. INSTRUCTED TO CALL FOR ASSISTANCE PRN. bED IN LOWEST AND LOCKED POSITION. CALL LIGHT AND PHONE WITHIN REACH. WILL CONTINUE TO MONITOR Q1HR AND PRN. GUARDS AT BEDSIDE
[2020-01-28 08:00] VITALS: BP 107/66
[2020-01-28 09:00] VITALS: BP 107/66
[2020-01-28] MEDS: BACLOFEN 10 MG TAB PO SCH ×2 (09:35→22:02)
[2020-01-28] MEDS: levoFLOXacin 500 MG TAB PO SCH (09:35)
[2020-01-28] MEDS: SODIUM CHLOR 0.9% PF (SALINE LOCK) 10ML VIAL/SYR IV SCH ×2 (09:36→22:02)
[2020-01-28] MEDS: ENOXAPARIN SOD 150 MG/1 ML SYRINGE SC SCH (09:37)
[2020-01-28 13:00] VITALS: BP 112/56
[2020-01-28 17:00] VITALS: BP_SYST 110; BP_SYST 111; BP_DIAS 64; BP_DIAS 74
--- NOTE | 2020-01-28 20:10 | NUR ---
Dressing are clean dry and intact.
--- NOTE | 2020-01-28 20:10 | NUR ---
Opening Shift Note Assumed care of patient, awake and alert. No S/S of distress/SOB or pain. Instructed on POC and to call for assist PRN, will continue to monitor for changes Q1hr and PRN. bed in low position call light within reach. gaurds at bedside. bed in low position and call light within reach.
--- NOTE | 2020-01-28 22:07 | NUR ---
hydragaurd cream applied per md orders to BLE. patient tolerated well.
--- NOTE | 2020-01-28 22:07 | NUR ---
Dressing change dressing change done to right thakkar per MD orders. patient tolerated well.
[2020-01-29] MEDS: PIPERACILLIN-TAZOB 3.375GM 100 ML IV SCH ×4 (02:48→21:49)
--- NOTE | 2020-01-29 03:55 | NUR ---
patient refused dressing change per patient " not now" patient educated on benefits and risks patient refused. will attempt later.
[2020-01-29 04:49] VITALS: BP_SYST 101; BP_SYST 121; BP_DIAS 71; BP_DIAS 72
[2020-01-29] MEDS: POTASSIUM CHL 20 Meq TABLET PO SCH ×3 (05:46→21:49)
[2020-01-29] MEDS: FUROSEMIDE 100 MG/10ML VIAL IV SCH ×3 (05:46→21:50)
--- NOTE | 2020-01-29 06:43 | NUR ---
patient rounds patient is in bed resting denies sob distress or pain. dressings to lower extremities are clean dry and intact. patient has Optifoam placed to sacrum as preventative.fall precautions in place. call light within reach. bed alarm on. guards at bedside
--- NOTE | 2020-01-29 07:30 | NUR ---
Opening Shift Note Assumed care of patient, awake and alert. No S/S of distress/SOB no c/o pain. Instructed on POC and nursing routines,call light within reach patient instructed reminded to call for assistance,patient verbalized understanding.will continue to monitor for changes Q1hr and PRN
--- NOTE | 2020-01-29 07:40 | NUR ---
REPORT GIVEN TO DAYSHIFT RN. PATIENT DENIES SOB DISTRESS OR PAIN SITTER AT BEDSIDE. FALL PRECAUTIONS IN PLACE. DRESSINGS ARE CLEAN DRY AND INTACT.
[2020-01-29 08:00] VITALS: BP 123/72
[2020-01-29 09:04] VITALS: BP 123/72
[2020-01-29] MEDS: levoFLOXacin 500 MG TAB PO SCH (10:14)
[2020-01-29] MEDS: ENOXAPARIN SOD 150 MG/1 ML SYRINGE SC SCH (10:14)
[2020-01-29] MEDS: BACLOFEN 10 MG TAB PO SCH ×2 (10:14→21:49)
[2020-01-29] MEDS: SODIUM CHLOR 0.9% PF (SALINE LOCK) 10ML VIAL/SYR IV SCH ×2 (10:15→21:49)
--- NOTE | 2020-01-29 12:15 | NUR ---
MD VISIT DR. PALMER HERE TO SEE AND EXAMINED PATIENT,DRESSING TO RIGHT FOOT REMOVED FOR ASSESSMENT
--- NOTE | 2020-01-29 12:30 | NUR ---
DRESSING CHANGED WOUND CLEANSE WITH WOUND CLEANSER,PAT DRY WITH STERILE GAUZE.OPEN WOUND CAVITY PACKED WITH 1/2 INCH IODOFORM WITH 1 INCH STRIP OUT ,COVERED WITH XEROFORM AND 4X4 GAUZE AND WRAP WITH LARGE KERLIX AND SECURED WITH TAPE.RIGHT MASON AND LEFT FOOT WOUND CLEANSED WITH WOUND CLEANSER,APPLIED TERAHONEY AND COVERED WITH OPTIFOAM.HYDRAGUARD CREAM APPLIED TO BILATERAL LOWER EXTREMITIES.
[2020-01-29 12:48] VITALS: BP 117/59
--- NOTE | 2020-01-29 13:40 | NUR ---
MD VISIT DR. FOWLER HERE TO SEE AND EXAMINED PATIENT ,INFORMED MID LINE STILL IN PLAXCE DESPITE HAVING A PICC LINE RECEIVED ORDER TO DISCONTINUE MID LINE.
--- NOTE | 2020-01-29 14:00 | NUR ---
MID LINE DISCONTINUED CATHETER INTACT NO BLEEDING FROM SITE
[2020-01-29 16:26] VITALS: BP 109/62
--- NOTE | 2020-01-29 19:17 | NUR ---
REPORT GIVEN TO INCOMING NOC SHIFT RN,NO DISTRESS NO DISCOMFORT.
--- NOTE | 2020-01-29 19:25 | NUR ---
Opening Shift Note Assumed care of patient, awake and alert. No S/S of distress/SOB no c/o pain. Dressing are clean dry and intact to bilateral extremities and sacrum. Instructed on POC and nursing routines,call light within reach patient instructed reminded to call for assistance,patient verbalized understanding.will continue to monitor for changes Q1hr and PRN. bed in low position call light within reach. fall precautions in place
[2020-01-29 22:12] VITALS: BP 106/58
--- NOTE | 2020-01-29 23:02 | NUR ---
HYDRAGUARD CREAM APPLIED TO BILATERAL LOWER EXTREMITIES PER MD ORDERS
[2020-01-30] MEDS: PIPERACILLIN-TAZOB 3.375GM 100 ML IV SCH ×4 (03:25→21:39)
[2020-01-30] MEDS: FUROSEMIDE 100 MG/10ML VIAL IV SCH ×3 (05:49→21:40)
[2020-01-30] MEDS: POTASSIUM CHL 20 Meq TABLET PO SCH ×3 (05:49→21:40)
[2020-01-30 06:00] VITALS: BP 108/64
--- NOTE | 2020-01-30 07:15 | NUR ---
report given to dayshift rn patient denies sob distress or pain fall precautions in place. call light within reach. dressing are clean dry and intact.
[2020-01-30 08:00] VITALS: BP 106/56
[2020-01-30 09:00] VITALS: BP_SYST 106; BP_SYST 124; BP_DIAS 56; BP_DIAS 62
[2020-01-30] MEDS: levoFLOXacin 500 MG TAB PO SCH (09:55)
[2020-01-30] MEDS: SODIUM CHLOR 0.9% PF (SALINE LOCK) 10ML VIAL/SYR IV SCH ×2 (09:55→21:40)
[2020-01-30] MEDS: ENOXAPARIN SOD 150 MG/1 ML SYRINGE SC SCH (09:56)
[2020-01-30] MEDS: BACLOFEN 10 MG TAB PO SCH ×2 (10:00→21:39)
[2020-01-30 13:00] VITALS: BP_SYST 103; BP_SYST 111; BP_DIAS 59; BP_DIAS 71
[2020-01-30 17:00] VITALS: BP 107/63
--- NOTE | 2020-01-30 19:14 | NUR ---
Closing note shift Patient is comfortably resting in bed, no s/s of distress noted/sated. Bed at lowest locked position and call light within reach. Guards at bedside for safety. Care endorsed to NOC RN.
--- NOTE | 2020-01-30 19:30 | NUR ---
Opening Shift Note Assumed care of patient, awake and alert. No S/S of distress/SOB or pain. Dressings are clean dry and intact. Instructed on POC and to call for assist PRN, will continue to monitor for changes Q1hr and PRN. bed in low position call light within reach. fall precautions in place.
[2020-01-30] MEDS: HYDROcodone-ACET 10/325MG TAB PO PRN (21:40)
--- NOTE | 2020-01-30 21:40 | NUR ---
pain patient reports pain7/10 to BLE. patient medicated per md orders
--- NOTE | 2020-01-30 21:49 | NUR ---
dressing change dressing change to right thakkar done per md orders. Hydragaurd applied to BLE.
[2020-01-30 22:19] VITALS: BP 104/66
--- NOTE | 2020-01-30 22:39 | NUR ---
pain reassessment patient reports 0/10 pain
[2020-01-31] MEDS: PIPERACILLIN-TAZOB 3.375GM 100 ML IV SCH ×4 (02:46→21:29)
[2020-01-31] MEDS: FUROSEMIDE 100 MG/10ML VIAL IV SCH ×4 (05:30→22:00)
[2020-01-31] MEDS: POTASSIUM CHL 20 Meq TABLET PO SCH ×3 (05:30→21:19)
[2020-01-31 05:37] LABS: Basophils # (auto) 0 10 ^3/uL (0-0.2); Basophils % (auto) 0.7 % (0.0-2.0); Eosinophils # (auto) 0.4 10 ^3/uL (0-0.8); Eosinophils % (auto) 7.7 % (0.0-7.0); Hematocrit 39.2 % (41.0-53.0); Lymphocytes # (auto) 1.3 10 ^3/uL (0.4-5.4); Lymphocytes % (auto) 28.2 % (10.0-50.0); Mean Corpuscular Hemoglobin 30.5 pg (28.0-32.0); Mean Corpuscular Hgb Conc. 33.3 g/dL (32.0-36.0); Mean Corpuscular Volume 91.8 fL (80.0-100.0); Monocytes # (auto) 0.5 10 ^3/uL (0-1.3); Monocytes % (auto) 10.7 % (0.0-12.0); Neutrophils # (auto) 2.4 10 ^3/uL (1.6-8.6); Neutrophils % (auto) 52.7 % (37.0-80.0); Nucleated Red Blood Cells % 0.1 %; Platelet Count (auto) 252 10^3/uL (140-450); Red Blood Cells 4.27 10^6/uL (4.5-5.90); Red Cell Distribution Width 15.8 % (11.8-14.3); White Blood Cell 4.6 10^3/uL (4.4-10.8)
[2020-01-31 05:52] LABS: BUN/Creatinine Ratio 17.3; Calcium 8.2 mg/dL (8.5-10.1); Potassium 4.1 mmol/L (3.5-5.1)
[2020-01-31 06:01] VITALS: BP 110/63
--- NOTE | 2020-01-31 06:49 | NUR ---
patient rounds patient is in bed. denies sob distress or pain. dressings are clean dry and intact. bed in low position and fall precautions in place.
--- NOTE | 2020-01-31 07:27 | NUR ---
report given to dayshift rn. patient denies sob distress or pain.
--- NOTE | 2020-01-31 08:00 | NUR ---
Morning note Patient resting in bed with even and unlabored respirations, no distress noted. Instructed patient on POC, fall precautions and to call for assistance as needed. Patient verbalized understanding. Fall precautions in place with call light within reach. Guards at bedside.
--- NOTE | 2020-01-31 08:45 | NUR ---
Patient transferred self to BSC with standby assistance provided from staff member. Call light within reach.
--- NOTE | 2020-01-31 09:00 | NUR ---
Patient transferred self to personal wheelchair with standby assistance provided from staff member. Call light within reach.
[2020-01-31 09:30] VITALS: BP 104/63
[2020-01-31] MEDS: levoFLOXacin 500 MG TAB PO SCH (10:19)
[2020-01-31] MEDS: SODIUM CHLOR 0.9% PF (SALINE LOCK) 10ML VIAL/SYR IV SCH ×2 (10:19→21:21)
[2020-01-31] MEDS: ENOXAPARIN SOD 150 MG/1 ML SYRINGE SC SCH (10:20)
[2020-01-31] MEDS: BACLOFEN 10 MG TAB PO SCH ×2 (10:20→21:19)
[2020-01-31 12:55] VITALS: BP 113/72
--- NOTE | 2020-01-31 14:58 | NUR ---
Nutrition Follow-up Notes Wt.: 144.8 kg Pt reports no N/V, good appetite. Pt consuming 100% po 01/29, 60% of breakfast (did not like part of food). Pt requested food changes, noted with registered clinical dietitian. Est. Needs: 4946-6598 kcals (14-17 kcal/kgBW) 138-173 gms/day/kg Adj BW. Will continue to monitor pertinent labs and reassess nutrient need prn. Labs: 01/15 Alb 2.4 L, Ca 8.2 L, rest lab wnl Skin: Morgan scale 18 low risk, pt with wounds per documentation writer. refer to WC notes for details GI: Pt had 1 BM on 01/29 per documentation writer. PES: 1) Obesity r/t energy intake in excess of energy needs aeb 149% IBW and BMI of 37.0 kg/m2 2) Resolved: Altered nutrition related lab values r/t current medical condition elev bili, hypocalc, hypoalb Will continue to monitor PO intake, skin status, pertinent labs and weight trend. F/u in 3-5 days. Rec: 1) Continue to closely monitor pt PO intake to meet at least 75% of meals. 2) Suggest 2g Na diet in lieu of the current diet order. 3) Consider a MVI with 500mg VitC BID. 4) Continue current plan of care
--- NOTE | 2020-01-31 16:03 | NUR ---
PICC to right upper arm, dressing changed using sterile technique. Site is clean dry and intact, no signs of infection, no pain at site.
--- NOTE | 2020-01-31 16:05 | NUR ---
Dressing to right foot changed per order, no signs of infection at site, elisabeth intact, red blood present on dressing, not saturated however. Patient states bleeding has decreased since last time. Patient tolerated well.
[2020-01-31 16:46] VITALS: BP 111/63
--- NOTE | 2020-01-31 19:26 | NUR ---
Report given to oncoming nurse Alicia, patient resting in bed comfortably, no s/s of distress noted, fall precautions in place.
[2020-01-31] MEDS: HYDROcodone-ACET 10/325MG TAB PO PRN (21:20)
[2020-01-31 22:30] VITALS: BP 108/60
[2020-02-01] MEDS: PIPERACILLIN-TAZOB 3.375GM 100 ML IV SCH ×4 (03:06→20:49)
[2020-02-01 05:30] VITALS: BP 100/57
[2020-02-01] MEDS: FUROSEMIDE 100 MG/10ML VIAL IV SCH ×3 (06:00→21:11)
[2020-02-01] MEDS: POTASSIUM CHL 20 Meq TABLET PO SCH ×3 (06:00→21:09)
--- NOTE | 2020-02-01 07:22 | NUR ---
Report given to Micky Stone, patient is resting , dressing dry and intact in the bilateral foot.
[2020-02-01 08:36] VITALS: BP 111/61
[2020-02-01] MEDS: BACLOFEN 10 MG TAB PO SCH ×2 (08:37→21:09)
[2020-02-01] MEDS: levoFLOXacin 500 MG TAB PO SCH (08:37)
[2020-02-01] MEDS: ENOXAPARIN SOD 150 MG/1 ML SYRINGE SC SCH (08:38)
[2020-02-01] MEDS: SODIUM CHLOR 0.9% PF (SALINE LOCK) 10ML VIAL/SYR IV SCH ×2 (10:36→21:10)
--- NOTE | 2020-02-01 10:59 | NUR ---
Dr mcdonald at bedside, inspected surgical wound, patient wound showing signs of healing. Dressing replaced.
[2020-02-01 13:00] VITALS: BP 106/53
[2020-02-01 17:05] VITALS: BP 106/58
--- NOTE | 2020-02-01 19:22 | NUR ---
Report given to Alicia RN, care endorsed. Patient resting comfortably in bed with fall precautions in place, no s/s of distress noted, call light within reach.
--- NOTE | 2020-02-01 20:00 | NUR ---
Opening Shift Note Assumed care of patient, awake and alert. No S/S of distress/SOB or pain. Instructed on POC and to call for assist PRN, will continue to monitor for changes Q1hr and PRN.Dressing in the right foot dry and intact.
[2020-02-01] MEDS: HYDROcodone-ACET 10/325MG TAB PO PRN (21:10)
[2020-02-01 22:00] VITALS: BP 108/60
[2020-02-02] MEDS: PIPERACILLIN-TAZOB 3.375GM 100 ML IV SCH ×4 (02:52→21:51)
[2020-02-02 05:00] VITALS: BP 120/61
[2020-02-02] MEDS: POTASSIUM CHL 20 Meq TABLET PO SCH ×3 (05:35→21:53)
[2020-02-02] MEDS: FUROSEMIDE 100 MG/10ML VIAL IV SCH ×3 (05:35→21:55)
--- NOTE | 2020-02-02 07:07 | NUR ---
Report given to Micky Baht, patient is resting no distress.
--- NOTE | 2020-02-02 07:30 | NUR ---
Opening Shift Note Assuming care of patient at this time. Patient is awake and alert. Patient denies pain. Patient shows no signs or symptoms of distress or shortness of breath. Bed is locked and lowered with side rails up x2. Instructed patient on the plan of care for today and to call for assistance as needed. Call light within reach. Guards at bedside.
[2020-02-02 09:00] VITALS: BP_SYST 118; BP_SYST 119; BP_DIAS 59; BP_DIAS 68
[2020-02-02] MEDS: ENOXAPARIN SOD 150 MG/1 ML SYRINGE SC SCH (09:57)
[2020-02-02] MEDS: BACLOFEN 10 MG TAB PO SCH ×2 (09:57→21:53)
[2020-02-02] MEDS: levoFLOXacin 500 MG TAB PO SCH (09:57)
[2020-02-02] MEDS: SODIUM CHLOR 0.9% PF (SALINE LOCK) 10ML VIAL/SYR IV SCH ×2 (10:02→21:52)
--- NOTE | 2020-02-02 11:45 | NUR ---
Wound Care Wound care done to patient's amputated toe according to doctor's orders. business development professional Olamide, along with this RN, at bedside. Patient's thakkar and ankle dressing changed at this time. New optifoam placed to patient's sacral area for preventative measures. Patient tolerated well.
[2020-02-02 13:00] VITALS: BP 121/67
--- NOTE | 2020-02-02 16:58 | NUR ---
WOUND CARE NOTE: IN TO SEE PATIENT AND CHANGE POST DEBRIDEMENT DRESSING AT THIS TIME. PATIENT HAS CURRENT KISHORE SCORE OF 17. PATIENT'S DRESSING REMOVED FROM RIGHT FOOT WOUND. PATIENT HAS 4 X 1 X 4 CM OPEN AMPUTATION OF THE RIGHT # 4 TOE. THERE ARE 5 INTACT DAWNA NOTED AT DISTAL END OF INCISION. LIGHT SEROUS DRAINAGE NOTED. CLEANSED/IRRIGATED WOUND WITH NS, PATTED DRY WITH STERILE GAUZE. APPLIED 1/2 IODAFORM STRIP INTO OPEN WOUND BED, LEAVING 1 INCH STRIP FROM WOUND. COVERED WITH XEROFORM, MULTIPLE STERILE 4X4'S. WRAPPED FOOT WITH 2 LARGE KERLIX, SECURED WITH TAPE. PATIENT TOLERATED WELL, NOTING NO PAIN BY PATIENT. WOUND PHOTOS TAKEN OF RIGHT FOOT WOUND, AND RIGHT/LEFT RESOLVING BLISTERS THAT ARE NO LONGER OPEN. RECOMMEND: CONTINUATION WITH ALL WOUND CARE ORDERS PREVIOUSLY PRESCRIBED BY . WOUND CARE TEAM WILL CONTINUE TO MONITOR. Addendum: 02/02/20 at 1708 by Renée Ruiz RN Amended: Links added. Addendum: 02/02/20 at 1719 by Renée Ruiz RN SAW PATIENT AT 1115
[2020-02-02 17:00] VITALS: BP 102/64
--- NOTE | 2020-02-02 19:27 | NUR ---
Closing Shift Note Patient resting in bed. No distress noted. Report given. Will endorse care to the pastry decorator RN.
--- NOTE | 2020-02-02 19:28 | NUR ---
Opening Shift Note Assumed care of patient, awake and alert. 2 guards at the bedside. No S/S of distress/SOB or pain. Instructed on POC and to call for assist PRN, will continue to monitor for changes Q1hr and PRN.
[2020-02-02 21:52] VITALS: BP 113/66
[2020-02-02] MEDS: HYDROcodone-ACET 10/325MG TAB PO PRN (21:53)
[2020-02-03] VITALS (7 sets, daily range): BP systolic 97–128; BP diastolic 56–79
[2020-02-03] MEDS: FUROSEMIDE 100 MG/10ML VIAL IV SCH ×3 (06:08→22:00)
[2020-02-03] MEDS: PIPERACILLIN-TAZOB 3.375GM 100 ML IV SCH ×3 (06:08→18:05)
[2020-02-03] MEDS: POTASSIUM CHL 20 Meq TABLET PO SCH ×3 (06:08→22:17)
[2020-02-03] MEDS: ENOXAPARIN SOD 150 MG/1 ML SYRINGE SC SCH (09:47)
[2020-02-03] MEDS: BACLOFEN 10 MG TAB PO SCH ×2 (09:47→22:17)
[2020-02-03] MEDS: SODIUM CHLOR 0.9% PF (SALINE LOCK) 10ML VIAL/SYR IV SCH ×2 (09:47→22:17)
[2020-02-03] MEDS: levoFLOXacin 500 MG TAB PO SCH (09:47)
--- NOTE | 2020-02-03 11:44 | NUR ---
Nutrition Follow-up Notes Wt.: 142 kg Pt reports no N/V, good appetite. Pt reports appetite is good and pt po intake is good, pt consumed 92% of po 02/01. RN note for breakfast 02/02 says NPO, pt reported eating breakfast Est. Needs: 7936-6695 kcals (14-17 kcal/kgBW) 138-173 gms/day/kg Adj BW. Will continue to monitor pertinent labs and reassess nutrient need prn. Labs: 01/15 Alb 2.4L, 01/30 Ca 8.2L Skin: Morgan scale 17 mod risk, pt with wounds per product safety test engineer. refer to WC notes for details GI: Pt had 1 BM on 01/31 per product safety test engineer. PES: 1) Obesity r/t energy intake in excess of energy needs aeb 149% IBW and BMI of 37.0 kg/m2 2) Resolved: Altered nutrition related lab values r/t current medical condition elev bili, hypocalc, hypoalb Will continue to monitor PO intake, skin status, pertinent labs and weight trend. F/u in 3-5 days. Rec: 1) Continue to closely monitor pt PO intake to meet at least 75% of meals. 2) Suggest 2g Na diet in lieu of the current diet order. 3) Consider a MVI with 500mg VitC BID. 4) Continue current plan of care
[2020-02-03] MEDS: HYDROcodone-ACET 10/325MG TAB PO PRN (15:57)
--- NOTE | 2020-02-03 19:00 | NUR ---
Opening Shift Note Assumed care of patient, awake and alert. 2 guards on bedside. No S/S of distress/SOB or pain. Instructed on POC and to call for assist PRN, will continue to monitor for changes Q1hr and PRN.
[2020-02-04] MEDS: PIPERACILLIN-TAZOB 3.375GM 100 ML IV SCH ×4 (00:08→19:19)
[2020-02-04 04:43] VITALS: BP 105/63
[2020-02-04] MEDS: FUROSEMIDE 100 MG/10ML VIAL IV SCH ×3 (05:33→22:00)
[2020-02-04] MEDS: POTASSIUM CHL 20 Meq TABLET PO SCH ×3 (05:34→22:36)
[2020-02-04 09:13] VITALS: BP 108/63
[2020-02-04] MEDS: ENOXAPARIN SOD 150 MG/1 ML SYRINGE SC SCH (10:00)
[2020-02-04] MEDS: levoFLOXacin 500 MG TAB PO SCH (10:00)
[2020-02-04] MEDS: BACLOFEN 10 MG TAB PO SCH ×2 (10:00→22:36)
[2020-02-04] MEDS: SODIUM CHLOR 0.9% PF (SALINE LOCK) 10ML VIAL/SYR IV SCH ×2 (10:00→22:35)
[2020-02-04 13:00] VITALS: BP 109/68
--- NOTE | 2020-02-04 14:09 | NUR ---
NO BONE SCAN PER JOSP IN RADIOLOGY PATIENT TO LARGE FOR A BONE SCAN.
[2020-02-04 17:00] VITALS: BP 114/68
--- NOTE | 2020-02-04 18:39 | NUR ---
DRESSING CARE PROVIDED TO RIGHT FOOT . PATIENT TOLERATED WELL.
--- NOTE | 2020-02-04 19:00 | NUR ---
endorsed care to night rn
[2020-02-04 22:00] VITALS: BP 105/67
[2020-02-05] MEDS: PIPERACILLIN-TAZOB 3.375GM 100 ML IV SCH ×4 (00:58→18:33)
[2020-02-05] MEDS: HYDROcodone-ACET 10/325MG TAB PO PRN (04:26)
[2020-02-05 05:00] VITALS: BP 108/64
[2020-02-05] MEDS: FUROSEMIDE 100 MG/10ML VIAL IV SCH ×3 (06:24→22:00)
[2020-02-05] MEDS: POTASSIUM CHL 20 Meq TABLET PO SCH ×3 (06:24→22:03)
[2020-02-05 08:40] VITALS: BP 103/66
[2020-02-05] MEDS: levoFLOXacin 500 MG TAB PO SCH (09:45)
[2020-02-05] MEDS: BACLOFEN 10 MG TAB PO SCH ×2 (09:45→22:03)
[2020-02-05] MEDS: ENOXAPARIN SOD 150 MG/1 ML SYRINGE SC SCH (09:45)
[2020-02-05] MEDS: SODIUM CHLOR 0.9% PF (SALINE LOCK) 10ML VIAL/SYR IV SCH ×2 (12:37→22:03)
[2020-02-05 12:48] VITALS: BP 104/66
[2020-02-05 17:00] VITALS: BP 114/73
--- NOTE | 2020-02-05 18:38 | NUR ---
DRESSING CHANGE TO RIGHT LOWER MAS[place] AND HEAL COMPLETED.PATIENT TOLERATED WELL.
--- NOTE | 2020-02-05 19:22 | NUR ---
ENDORSED CARE TO NIGHT RN
--- NOTE | 2020-02-05 19:25 | NUR ---
Opening Shift Note Assumed care of patient, awake and alert. @ guards on bedside. No S/S of distress/SOB or pain. Instructed on POC and to call for assist PRN, will continue to monitor for changes Q1hr and PRN.
[2020-02-05 22:00] VITALS: BP 103/63
[2020-02-06 04:52] VITALS: BP 102/56
[2020-02-06] MEDS: FUROSEMIDE 100 MG/10ML VIAL IV SCH ×4 (06:23→22:12)
[2020-02-06] MEDS: POTASSIUM CHL 20 Meq TABLET PO SCH ×3 (06:23→22:12)
[2020-02-06] MEDS: PIPERACILLIN-TAZOB 3.375GM 100 ML IV SCH ×4 (06:24→18:02)
--- NOTE | 2020-02-06 08:15 | NUR ---
SPOKE WITH MCC MD BY PHONE AND UPDATED ON POC.
[2020-02-06 09:00] VITALS: BP 120/76
[2020-02-06] MEDS: BACLOFEN 10 MG TAB PO SCH ×2 (10:00→22:13)
[2020-02-06] MEDS: levoFLOXacin 500 MG TAB PO SCH (10:00)
[2020-02-06] MEDS: ENOXAPARIN SOD 150 MG/1 ML SYRINGE SC SCH (10:01)
[2020-02-06] MEDS: SODIUM CHLOR 0.9% PF (SALINE LOCK) 10ML VIAL/SYR IV SCH ×2 (10:01→22:12)
--- NOTE | 2020-02-06 14:56 | NUR ---
WOUND CARE TO RIGHT FOOT REMOVED OLD DRESSING AND PACKING, CLEANSED WITH WOUND CLEANSER, REPACKED TOE CAVITY WITH IODOFORM, COVERED WITH XEROFOAM, WRAPPED WITH KERLEX AND SECURED WITH TAPE. PATIENT TOLERATED WELL.
--- NOTE | 2020-02-06 15:24 | NUR ---
Nutrition Follow-up Notes Wt.: 142.9 kg Pt `s with guards by beside. per records pt with amputation 4th toe. pt with no distress noted. pt is currently on regular diet with adequate PO of > 75% x 4 per RN doc Est. Needs: 7193-9941 kcals (14-17 kcal/kgBW) 138-173 gms/day/kg Adj BW. Will continue to monitor pertinent labs and reassess nutrient need prn. Labs: ALB 2.9 L. Skin: Morgan scale 17 mod risk, pt with wounds per pest control specialist. refer to WC notes for details GI: Pt had 1 BM on 01/31 per pest control specialist. PES: 1) Obesity r/t energy intake in excess of energy needs aeb 149% IBW and BMI of 37.0 kg/m2 2) Resolved: Altered nutrition related lab values r/t current medical condition elev bili, hypocalc, hypoalb Will continue to monitor PO intake, skin status, pertinent labs and weight trend. F/u in 3-5 days. Rec: 1) Continue to closely monitor pt PO intake to meet at least 75% of meals. 2) Suggest 2g Na diet in lieu of the current diet order. 3) Consider a MVI with 500mg VitC BID. 4) Continue current plan of care
[2020-02-06 16:41] VITALS: BP 115/63
[2020-02-06] MEDS: HYDROcodone-ACET 10/325MG TAB PO PRN (18:03)
--- NOTE | 2020-02-06 19:25 | NUR ---
ENDORSED CARE TO NIGHT RN.
--- NOTE | 2020-02-06 19:30 | NUR ---
Opening Shift Note Assumed care of patient, awake and alert x4. No S/S of distress/SOB or pain. Dressing to the right foot is C/D/I. Call light is within reach, side rail sup x2, bed is in the lowest position. Instructed on POC and to call for assist PRN, will continue to monitor for changes Q1hr and PRN.
[2020-02-06 22:00] VITALS: BP_SYST 102; BP_SYST 118; BP_DIAS 68; BP_DIAS 74
--- NOTE | 2020-02-06 22:36 | NUR ---
Patient refused IV Lasix 40 mg for 2200 stating he did not want to be awake all night having to urinate.
[2020-02-07] MEDS: PIPERACILLIN-TAZOB 3.375GM 100 ML IV SCH ×4 (00:02→18:31)
[2020-02-07 05:00] VITALS: BP 104/61
[2020-02-07] MEDS: POTASSIUM CHL 20 Meq TABLET PO SCH ×3 (06:30→21:43)
[2020-02-07] MEDS: SODIUM CHLOR 0.9% PF (SALINE LOCK) 10ML VIAL/SYR IV SCH ×2 (06:30→21:43)
[2020-02-07] MEDS: FUROSEMIDE 100 MG/10ML VIAL IV SCH ×3 (06:30→21:44)
[2020-02-07 08:43] VITALS: BP 105/70
[2020-02-07] MEDS: BACLOFEN 10 MG TAB PO SCH ×2 (11:00→21:43)
[2020-02-07] MEDS: levoFLOXacin 500 MG TAB PO SCH (11:00)
[2020-02-07] MEDS: ENOXAPARIN SOD 150 MG/1 ML SYRINGE SC SCH (11:00)
[2020-02-07 12:40] VITALS: BP 109/64
--- NOTE | 2020-02-07 14:11 | NUR ---
CALLED MRI AND NUCLEAR MED. DEPT. FOR PT'S DIAGNOSTICS OPTIONS REQUESTED PER DR. FOWLER. PT'S WEIGHT: 302lbs. MRI TABLE LIMIT IS 280lbs NUCLEAR MED. STAFF REPORTED THAT STUDY HAS BEEN ATTEMPTED ON PT AND THEY ARE NOT ABLE TO SCAN DUE TO PT'S BODY STRUCTURE. DR. FOWLER PAGED TO INFORM FINDING. MESSAGE LEFT WITH NAIVES (REP) AT OFFICE.
[2020-02-07 17:00] VITALS: BP 115/71
[2020-02-07] MEDS: HYDROcodone-ACET 10/325MG TAB PO PRN (18:50)
--- NOTE | 2020-02-07 21:45 | NUR ---
Patient refused IV Lasix 40 mg for 2200.
[2020-02-07 22:14] VITALS: BP 110/63
[2020-02-08] MEDS: PIPERACILLIN-TAZOB 3.375GM 100 ML IV SCH ×4 (00:14→19:08)
[2020-02-08 05:02] VITALS: BP 105/70
--- NOTE | 2020-02-08 05:30 | NUR ---
WOUND CARE TO RIGHT FOOT REMOVED OLD DRESSING AND PACKING. DAWNA ARE INTACT AND WELL APPROXIMATED, SEROSANGUINEOUS DRAINAGE NOTED WHEN IODOFORM PACKING REMOVED. CLEANSED AREA WITH WOUND CLEANSER, REPACKED TOE CAVITY WITH IODOFORM, COVERED WITH XEROFOAM, WRAPPED WITH KERLEX AND SECURED WITH TAPE. PATIENT TOLERATED WELL WITH NO COMPLAINTS OF PAIN.
[2020-02-08] MEDS: FUROSEMIDE 100 MG/10ML VIAL IV SCH ×4 (06:25→22:12)
[2020-02-08] MEDS: SODIUM CHLOR 0.9% PF (SALINE LOCK) 10ML VIAL/SYR IV SCH ×2 (06:25→22:41)
[2020-02-08] MEDS: POTASSIUM CHL 20 Meq TABLET PO SCH ×3 (06:25→22:12)
[2020-02-08 09:12] VITALS: BP 103/63
[2020-02-08] MEDS: levoFLOXacin 500 MG TAB PO SCH (10:11)
[2020-02-08] MEDS: BACLOFEN 10 MG TAB PO SCH ×2 (10:11→22:12)
[2020-02-08] MEDS: ENOXAPARIN SOD 150 MG/1 ML SYRINGE SC SCH (10:12)
[2020-02-08 13:00] VITALS: BP 112/78
[2020-02-08] MEDS: HYDROcodone-ACET 10/325MG TAB PO PRN ×2 (14:44→22:52)
--- NOTE | 2020-02-08 15:44 | NUR ---
MEDICATION GIVEN PER NOV. PATIENT STATES PAIN IS NOW 6/10, REDUCTION FROM 8/10 PAIN. PATIENT REQUESTED A BLANKET TO ELEVATE HIS LEG ON AND HELP WITH STRETCHING. AFTER THESE INTERVENTIONS, PATIENT VOICED HE WAS COMFORTABLE.
[2020-02-08 16:49] VITALS: BP 102/65
--- NOTE | 2020-02-08 17:00 | NUR ---
SPOKE WITH RADIOLOGY AT REQUEST OF DR FOWLER. THEY INFORMED ME THAT A BONE SCAN WAS NOT POSSIBLE EVEN THOUGH PATIENT HAD ONE WHEN HE CAME. I WAS INFORMED THAT THE INITIAL SCAN WAS DONE POORLY D/T THE PATIENTS WEIGHT AND HEIGHT, TERM USED "VERY POOR STUDY". ALSO TOLD THAT POSITIONING FOR THE BONE SCAN WAS A CHALLENGE. IS AWARE OF THIS WELL BEING UNABLE TO COMPLETE MRI BECAUSE OF PATIENTS WEIGHT. NO NEW ORDERS AT THIS TIME.
--- NOTE | 2020-02-08 19:30 | NUR ---
OPENING NOTE PT. IS AWAKE AND ALERT. HE IS BEING MOVED FROM ROOM 0293-B TO ROOM 0286-B. PT. IN NO DISTRESS OR PAIN. CALL LIGHT WITHIN REACH AND DEPUTIES AT BEDSIDE. WILL CONTINUE TO MONITOR.
[2020-02-08 22:00] VITALS: BP_SYST 105; BP_SYST 131; BP_DIAS 67; BP_DIAS 86
--- NOTE | 2020-02-08 22:00 | NUR ---
med refused lasix drawn up and "given" in emar, however, pt. refused just before giving. said he wanted only morning dose. med wasted. corrected in emar.
--- NOTE | 2020-02-09 00:11 | NUR ---
picc line dressing change RN TO DO PICC LINE DRESSING CHANGE. PT. REFUSED AT THIS TIME, STATES "AT 5 OCLOCK IN THE MORNING". RN TO DO PICC LINE IN AM.
[2020-02-09] MEDS: PIPERACILLIN-TAZOB 3.375GM 100 ML IV SCH ×4 (00:24→18:05)
--- NOTE | 2020-02-09 00:55 | NUR ---
PT. ASLEEP PT. ASLEEP IN BED. DEPUTIES AT BEDSIDE. WILL CONTINUE TO MONITOR Q1HR.
[2020-02-09 05:00] VITALS: BP 107/69
--- NOTE | 2020-02-09 05:05 | NUR ---
PICC Line Dressing Changes PICC line dressing change done with a sterile technique. Cleansed with ChloraPrep scrub/Betadine. Stat lock, and bio-patch as available. Occlusive dressing applied.
[2020-02-09] MEDS: POTASSIUM CHL 20 Meq TABLET PO SCH ×3 (05:37→22:23)
[2020-02-09] MEDS: FUROSEMIDE 100 MG/10ML VIAL IV SCH ×3 (05:46→22:00)
--- NOTE | 2020-02-09 06:45 | NUR ---
end of shift end of shift. pt. resting in bed. deputies at bedside. no pain/distress.
--- NOTE | 2020-02-09 08:00 | NUR ---
Opening Shift Note Assumed care of patient, awake, alert and oriented X4. No S/S of distress/SOB or pain. Right upper arm single line PICC with dressing clean, dry and intact, patent and saline locked. Bilateral lower extremities with thick, scaly skin, left thakkar with dressing clean, dry and intact, right foot with dressing clean, dry and intact. Instructed on POC and to call for assist PRN, verbalized understanding. Bed locked, in lowest position, call light within reach, bilateral wrists shackled to bed frame, guards X2 at bedside, will continue to monitor for changes Q1hr and PRN.
[2020-02-09 09:00] VITALS: BP 100/62
[2020-02-09] MEDS: SODIUM CHLOR 0.9% PF (SALINE LOCK) 10ML VIAL/SYR IV SCH ×2 (10:53→22:23)
[2020-02-09] MEDS: ENOXAPARIN SOD 150 MG/1 ML SYRINGE SC SCH (10:54)
[2020-02-09] MEDS: BACLOFEN 10 MG TAB PO SCH ×2 (10:54→22:23)
[2020-02-09] MEDS: levoFLOXacin 500 MG TAB PO SCH (10:54)
--- NOTE | 2020-02-09 11:42 | NUR ---
WOUND CARE NOTE: Wound care in to see patient for reevaluation of wounds. Patient is resting in bed in Rm. 286B. Patient is awake, alert and oriented. He's in no stated pain at this time. He's self turning and repositioning. His Morgan score is 15. Patient's BLE display intact pink scars and dry scabs from old resolving blisters. He's receiving BID/PRN cleaning and application of Hydraguard cream to help moisturize dry BLE skin. Removed patient's Rt foot wound dressing. Patient had amputation of Rt 4th toe. Wound is stapled to proximal and distal. Open area measuring 2.5x0.8x 2.5cm. Wound is red with granulation tissue noted, no odor noted. Old dressing noted with minimal serosanguineous drainage. Cleansed wound with wound cleanser, patted dry with sterile gauze. Fill wound cavity with 1/2 inch iodoform packing strips leaving an inch tail,covered incision site with Xeroform dressing, padded with layers of 4x4's gauze, wrapped with two Kerlix, secured with tape. Patient tolerated well. New photograph of wound are taken for reference. Bed in low position, call melendez within reach, all safety precautions in placed. Guards at bedside. RECOMMENDATION: Continuation of all wound care orders prescribed by MD, continue with skin/wound plan of care, continue monitoring by wound care while patient is hospitalized. Addendum: 02/09/20 at 1731 by Mackenzie Valdez RN Amended: Links added.
[2020-02-09 12:45] VITALS: BP 135/84
[2020-02-09 17:00] VITALS: BP 109/61
--- NOTE | 2020-02-09 19:20 | NUR ---
Care endorsed to JORDY Truong, night nurse.
--- NOTE | 2020-02-09 19:22 | NUR ---
Opening Shift Note Assumed care of patient, awake, alert and oriented x4, on room air with even and unlabored respirations, no S/S of distress/SOB or pain. Patient able to turn independently, bed in lowest locked position, side rails up x2, and call light within reach. Instructed on POC and to call for assist PRN, will continue to monitor for changes Q1hr and PRN.
[2020-02-09 22:00] VITALS: BP 110/61
[2020-02-10] MEDS: PIPERACILLIN-TAZOB 3.375GM 100 ML IV SCH ×4 (01:03→17:55)
[2020-02-10] MEDS: FUROSEMIDE 100 MG/10ML VIAL IV SCH ×3 (06:20→22:00)
[2020-02-10] MEDS: POTASSIUM CHL 20 Meq TABLET PO SCH ×3 (06:20→22:11)
--- NOTE | 2020-02-10 08:00 | NUR ---
Opening Shift Note Assumed care of patient, awake and alert laying in bed. No S/S of distress/SOB or pain. Instructed on POC and to call for assist PRN, will continue to monitor for changes Q1hr and PRN. Guards at bedside.
[2020-02-10 08:32] VITALS: BP 122/69
[2020-02-10] MEDS: ENOXAPARIN SOD 150 MG/1 ML SYRINGE SC SCH (12:26)
[2020-02-10] MEDS: SODIUM CHLOR 0.9% PF (SALINE LOCK) 10ML VIAL/SYR IV SCH ×2 (12:26→22:11)
[2020-02-10] MEDS: levoFLOXacin 500 MG TAB PO SCH (12:26)
[2020-02-10] MEDS: BACLOFEN 10 MG TAB PO SCH ×2 (12:27→22:11)
[2020-02-10 12:44] VITALS: BP 112/59
--- NOTE | 2020-02-10 13:30 | NUR ---
Dr. Edwin Pineda rounded on patient. Dressing removed. Verbal order to have wound care remove elisabeth and dress.
--- NOTE | 2020-02-10 14:00 | NUR ---
Elisabeth removed as per Dr. Pineda 7 elisabeth to surgical incision removed as per instructions from Dr. Pineda. Wound dressed as ordered.
[2020-02-10 16:36] VITALS: BP 119/70
--- NOTE | 2020-02-10 18:05 | NUR ---
Refusing Meals Patient hasn't eaten his meals today. Patient stated that he is not hungry.
--- NOTE | 2020-02-10 19:20 | NUR ---
Opening Shift Note Assumed care of patient, awake, alert and oriented x4, on room air with even and unlabored respirations, no S/S of distress/SOB or pain. Patient able to turn in bed independently, bed in lowest locked position, side rails up x2, and call light within reach. Instructed on POC and to call for assist PRN, will continue to monitor for changes Q1hr and PRN.
[2020-02-10 22:00] VITALS: BP 121/68
[2020-02-11] MEDS: PIPERACILLIN-TAZOB 3.375GM 100 ML IV SCH ×4 (00:52→17:55)
[2020-02-11 05:00] VITALS: BP 101/66
[2020-02-11] MEDS: FUROSEMIDE 100 MG/10ML VIAL IV SCH (06:24)
[2020-02-11] MEDS: POTASSIUM CHL 20 Meq TABLET PO SCH ×2 (06:25→23:04)
--- NOTE | 2020-02-11 07:50 | NUR ---
Opening Shift Note Assumed care of patient, awake and alert laying in bed talking with guards at bedside. No S/S of distress/SOB or pain. Instructed on POC and to call for assist PRN, will continue to monitor for changes Q1hr and PRN.
[2020-02-11 07:54] VITALS: BP 107/62
[2020-02-11] MEDS: ENOXAPARIN SOD 150 MG/1 ML SYRINGE SC SCH (09:40)
[2020-02-11] MEDS: BACLOFEN 10 MG TAB PO SCH ×2 (09:40→23:04)
[2020-02-11] MEDS: levoFLOXacin 500 MG TAB PO SCH (09:40)
[2020-02-11] MEDS: SODIUM CHLOR 0.9% PF (SALINE LOCK) 10ML VIAL/SYR IV SCH ×2 (09:41→22:00)
[2020-02-11] MEDS ORDERED: POTASSIUM CHL 20 Meq TABLET PO SCH (12:15)
[2020-02-11] MEDS ORDERED: FUROSEMIDE 100 MG/10ML VIAL IV SCH (12:15)
[2020-02-11 13:00] VITALS: BP 113/70
[2020-02-11 17:02] VITALS: BP 118/66
[2020-02-11] MEDS: FUROSEMIDE 40 MG/4 ML VIAL IV SCH (18:01)
--- NOTE | 2020-02-11 19:30 | NUR ---
Opening Shift Note Assumed care of patient. Patient is awake and alert with guards at bedside. No S/S of distress/SOB or pain. Instructed on POC and to call for assist PRN, will continue to monitor for changes Q1hr and PRN. Bed locked in lowest position and bed rails up x3. Call light within reach.
[2020-02-11 22:56] VITALS: BP 127/72
[2020-02-12] MEDS: PIPERACILLIN-TAZOB 3.375GM 100 ML IV SCH ×4 (00:14→17:15)
[2020-02-12 05:33] LABS: BUN/Creatinine Ratio 20.6; Potassium 3.8 mmol/L (3.5-5.1)
[2020-02-12 05:36] VITALS: BP 100/65
[2020-02-12] MEDS: FUROSEMIDE 40 MG/4 ML VIAL IV SCH ×2 (06:19→17:13)
[2020-02-12 08:00] VITALS: BP 127/86
[2020-02-12 09:00] VITALS: BP 103/56
[2020-02-12] MEDS: BACLOFEN 10 MG TAB PO SCH ×2 (09:36→22:53)
[2020-02-12] MEDS: POTASSIUM CHL 20 Meq TABLET PO SCH ×2 (09:36→22:53)
[2020-02-12] MEDS: levoFLOXacin 500 MG TAB PO SCH (09:36)
[2020-02-12] MEDS: ENOXAPARIN SOD 150 MG/1 ML SYRINGE SC SCH (09:37)
[2020-02-12] MEDS: SODIUM CHLOR 0.9% PF (SALINE LOCK) 10ML VIAL/SYR IV SCH ×2 (09:37→22:53)
[2020-02-12 13:00] VITALS: BP 106/72
--- NOTE | 2020-02-12 14:00 | NUR ---
Nutrition consult/ Follow-up Notes Wt.: 133.0 kg Pt`s with guards by beside. per pt is on hunger strike and will not eat until he speaks to some person from long term. guard by bedside verified this and reported pt not eating and they are working on it. per pt no issue with hosp food only his personal issue. per pt will not eat. pt is currently on regular diet with inadequate PO of 0% x 4 per RN doc Est. Needs: 3605-4622 kcals (14-17 kcal/kgBW) 138-173 gms/day/kg Adj BW. Will continue to monitor pertinent labs and reassess nutrient need prn. Labs: All nutrition related labs wnl for today Skin: Morgan scale 13 mod risk, pt with wounds per portfolio consultant. refer to WC notes for details GI: Pt had 1 BM on 01/31 per portfolio consultant. PES: 1) Obesity r/t energy intake in excess of energy needs aeb 149% IBW and BMI of 37.0 kg/m2 2) Resolved: Altered nutrition related lab values r/t current medical condition elev bili, hypocalc, hypoalb Will continue to monitor PO intake, skin status, pertinent labs and weight trend. F/u in 3-5 days. Rec: 1) Continue to closely monitor pt PO intake to meet at least 75% of meals. 2) Consider a MVI with 500mg VitC BID. 4) Continue current plan of care. 3) consider ensure enlive 1 carton bid as pO is low
[2020-02-12] MEDS: HYDROcodone-ACET 10/325MG TAB PO PRN ×2 (16:44→22:54)
[2020-02-12 17:00] VITALS: BP 109/54
--- NOTE | 2020-02-12 19:30 | NUR ---
Opening Note Assumed care of patient, awake and alert. No S/S of distress/SOB or pain. Instructed on POC and to call for assist PRN, will continue to monitor for changes . Patient denies pain or discomfort. Guards in the room. Dressings on his bilateral extremities clean and dry.
[2020-02-12 21:23] VITALS: BP 115/67
[2020-02-13] MEDS: PIPERACILLIN-TAZOB 3.375GM 100 ML IV SCH ×4 (00:03→18:51)
--- NOTE | 2020-02-13 00:07 | NUR ---
Patient in bed, resting, IV abx running. Patient denies discomfort at this time.
[2020-02-13 04:53] VITALS: BP 121/65
[2020-02-13] MEDS: FUROSEMIDE 40 MG/4 ML VIAL IV SCH ×2 (05:03→18:50)
--- NOTE | 2020-02-13 06:27 | NUR ---
Patient resting, denies discomfort. Guards in the room. POC explained to patient.
[2020-02-13 08:43] VITALS: BP 120/78
[2020-02-13 09:08] VITALS: BP 102/61
[2020-02-13] MEDS: ENOXAPARIN SOD 150 MG/1 ML SYRINGE SC SCH (10:31)
[2020-02-13] MEDS: levoFLOXacin 500 MG TAB PO SCH (10:31)
[2020-02-13] MEDS: POTASSIUM CHL 20 Meq TABLET PO SCH ×2 (10:31→21:54)
[2020-02-13] MEDS: SODIUM CHLOR 0.9% PF (SALINE LOCK) 10ML VIAL/SYR IV SCH ×2 (10:31→21:53)
[2020-02-13] MEDS: BACLOFEN 10 MG TAB PO SCH ×2 (10:32→21:55)
[2020-02-13 12:59] VITALS: BP 102/69
[2020-02-13 16:39] VITALS: BP 113/69
--- NOTE | 2020-02-13 19:27 | NUR ---
Opening Note Assumed care of patient, awake and alert. No S/S of distress/SOB. Instructed on POC and to call for assist as needed. Will continue to monitor. Spoked to Dr Schmitz to obtain order for lactulose PO for constipation.
[2020-02-13] MEDS: LACTULOSE 20Gm/30ML SOLN PO SCH (21:54)
[2020-02-13 22:00] VITALS: BP_SYST 101; BP_SYST 145; BP_DIAS 63; BP_DIAS 82
[2020-02-13] MEDS: HYDROcodone-ACET 10/325MG TAB PO PRN (22:29)
[2020-02-14] MEDS: PIPERACILLIN-TAZOB 3.375GM 100 ML IV SCH ×4 (00:38→18:12)
[2020-02-14] MEDS: LACTULOSE 20Gm/30ML SOLN PO SCH ×6 (01:47→22:00)
--- NOTE | 2020-02-14 01:47 | NUR ---
Patient explained that he would rather skip the 0200 dose of Lactulose and take the 0600, he already feel that the first dose is working.
--- NOTE | 2020-02-14 04:04 | NUR ---
Patient complained of muscle spasm and pain on his legs. Practice passive ROM, and that was helpful to him. Medicated for pain.
[2020-02-14] MEDS: HYDROcodone-ACET 10/325MG TAB PO PRN (04:07)
[2020-02-14 05:00] VITALS: BP 108/71
[2020-02-14] MEDS: FUROSEMIDE 40 MG/4 ML VIAL IV SCH ×2 (05:42→18:00)
--- NOTE | 2020-02-14 06:49 | NUR ---
Patient resting, he refused his Lasix and lactulose this morning. Patient stated I will resume Lasix at 1800.
--- NOTE | 2020-02-14 07:30 | NUR ---
Opening Note Assumed patient care from JOLIE RN.
[2020-02-14 09:00] VITALS: BP 113/69
--- NOTE | 2020-02-14 11:00 | NUR ---
Dressing Change Right foot dressing change done per MD orders, 1/2in iodoform packing used with 1 inch extra. Serousanguinous drainage noted at site, surrounding tissue is pink and moist, fifth toe appears moist, per patient there was a previous blister, states MD will possibly amputate that toe as well. Patient tolerated well. Respirations even and unlabored, no signs of distress at this time. Will continue to monitor. Left foot dressing applied, sanguinous drainage noted at site. Per patient, there was a non adherent dressing applied by a previous shift but it fell off. Applied sterile gauze and secured with Kerlix.
--- NOTE | 2020-02-14 11:08 | NUR ---
Consult Wt 132.9 Pt reports appetite is fine. Pt reports reason for food refusal has to do with issue he has with [facility]. Advised pt the importance of nutrition and healing his wounds. Pt showed understanding and said he will eat "soon". Again asked pt if there is anything we can do to get him to eat and he said again he will start eating "soon". Est. Needs: 6913-0099 kcals (14-17 kcal/kgBW) 138-173 gms/day/kg Adj BW. Will continue to monitor pertinent labs and reassess nutrient need prn. Labs: BUN 22H, other labs WNL Skin: Morgan scale 13 mod risk, pt with wounds per edge cutter. refer to WC notes for details GI: Pt had 1 BM on 02/12 per edge cutter. PES: 1) Obesity r/t energy intake in excess of energy needs aeb 149% IBW and BMI of 37.0 kg/m2 2) Resolved: Altered nutrition related lab values r/t current medical condition elev bili, hypocalc, hypoalb Will continue to monitor PO intake, skin status, pertinent labs and weight trend. F/u in 3-5 days. Rec: 1) Continue to closely monitor pt PO intake to meet at least 75% of meals. 2) Consider a MVI with 500mg VitC BID. 4) Continue current plan of care. 3) consider ensure enlive 1 carton bid as pO is low
[2020-02-14] MEDS: POTASSIUM CHL 20 Meq TABLET PO SCH ×2 (11:16→22:00)
[2020-02-14] MEDS: BACLOFEN 10 MG TAB PO SCH ×2 (11:16→22:00)
[2020-02-14] MEDS: levoFLOXacin 500 MG TAB PO SCH (11:16)
[2020-02-14] MEDS: ENOXAPARIN SOD 150 MG/1 ML SYRINGE SC SCH (11:17)
--- NOTE | 2020-02-14 12:00 | NUR ---
PICC Line Dressing PICC Line dressing change done using sterile technique. Patient tolerated well with no signs of distress at this time. Respirations even and unlabored. Will continue to monitor.
[2020-02-14] MEDS: SODIUM CHLOR 0.9% PF (SALINE LOCK) 10ML VIAL/SYR IV SCH ×2 (12:19→22:00)
[2020-02-14 13:00] VITALS: BP 135/75
[2020-02-14 17:00] VITALS: BP 114/67
--- NOTE | 2020-02-14 19:32 | NUR ---
Closing Note Report given to JOLIE SPENCE.
[2020-02-14 22:00] VITALS: BP 121/65
[2020-02-15] MEDS: LACTULOSE 20Gm/30ML SOLN PO SCH ×6 (02:00→22:00)
[2020-02-15 05:00] VITALS: BP 113/69
[2020-02-15] MEDS: FUROSEMIDE 40 MG/4 ML VIAL IV SCH ×2 (06:00→18:00)
[2020-02-15] MEDS: PIPERACILLIN-TAZOB 3.375GM 100 ML IV SCH ×4 (06:00→18:14)
--- NOTE | 2020-02-15 06:10 | NUR ---
MEDICATION REFUSED Patient refused his Lasix and Lactulose. Patient has been educated on each medication and the risks associated with refusal. The patient verbalized understanding.
--- NOTE | 2020-02-15 06:45 | NUR ---
PATIENT STATES THAT HE WANTS TO BE DISCHARGED AND WILL LIKE TO SPEAK TO DR. FOWLER ABOUT POSSIBLE DISCHARGE. WILL ENDORSE TO DAY SHIFT.
--- NOTE | 2020-02-15 07:30 | NUR ---
Opening Note Assumed patient care from NOC RN. Patient currently sitting up in bed. Patient refused vitals. No signs of distress at this time. Respirations even and unlabored. Safety precautions in place, will continue to monitor.
--- NOTE | 2020-02-15 08:30 | NUR ---
Request to speak with Dr. Schmitz Patient requesting to speak with Dr. Schmitz regarding possible discharge.
[2020-02-15] MEDS: POTASSIUM CHL 20 Meq TABLET PO SCH ×2 (10:36→22:00)
[2020-02-15] MEDS: levoFLOXacin 500 MG TAB PO SCH (10:36)
[2020-02-15] MEDS: BACLOFEN 10 MG TAB PO SCH ×2 (10:36→22:00)
[2020-02-15] MEDS: ENOXAPARIN SOD 150 MG/1 ML SYRINGE SC SCH (10:37)
[2020-02-15] MEDS: SODIUM CHLOR 0.9% PF (SALINE LOCK) 10ML VIAL/SYR IV SCH ×2 (10:46→22:00)
[2020-02-15 13:00] VITALS: BP 95/53
--- NOTE | 2020-02-15 16:52 | NUR ---
at [facility] Dr. Schmitz at bedside. MD aware of patient request to speak with him regarding discharge planning. Per MD there is no plan for discharge today.
[2020-02-15 17:00] VITALS: BP 105/52
--- NOTE | 2020-02-15 17:50 | NUR ---
Patient Rounds Patient states he spoke with Dr. Schmitz regarding discharge. Patient states he was told there is no discharge plan at this time. Patient states he would like to leave Tuesday and he plans to AMA back to facility if not discharged then. Patient verbalized understanding regarding recommendation to stay to continue care but states he does not want to stay in the hospital if no further interventions are planned. Will continue to monitor.
--- NOTE | 2020-02-15 18:52 | NUR ---
Closing Note Report given to Darrius DAVE RN.
--- NOTE | 2020-02-15 19:15 | NUR ---
Opening Shift Note Assumed care of patient, awake and alert. No S/S of distress/SOB or pain. Bed is locked in lowest position with call light within reach. Instructed on POC and to call for assist PRN, will continue to monitor for changes Q1hr and PRN.
[2020-02-16] VITALS (7 sets, daily range): BP systolic 101–131; BP diastolic 58–78
[2020-02-16] MEDS: LACTULOSE 20Gm/30ML SOLN PO SCH ×6 (02:00→22:00)
[2020-02-16] MEDS: PIPERACILLIN-TAZOB 3.375GM 100 ML IV SCH ×5 (06:00→23:44)
[2020-02-16] MEDS: FUROSEMIDE 40 MG/4 ML VIAL IV SCH ×2 (06:00→18:00)
--- NOTE | 2020-02-16 08:02 | NUR ---
Opening Shift Note Assumed care of patient, awake and alert. No S/S of distress/SOB or pain. Instructed on POC and to call for assist PRN. Bed at lowest locked position and call light within reach. Will continue to monitor for changes Q1hr and PRN. Guards at bedside for safety.
[2020-02-16] MEDS: SODIUM CHLOR 0.9% PF (SALINE LOCK) 10ML VIAL/SYR IV SCH ×2 (10:00→22:17)
--- NOTE | 2020-02-16 11:15 | NUR ---
WOUND CARE Completed wound care to right/left foot, per MD orders. Patient tolerated well. Will continue to monitor PRN. Guards at bedside for safety.
[2020-02-16] MEDS: BACLOFEN 10 MG TAB PO SCH ×2 (11:57→22:15)
[2020-02-16] MEDS: POTASSIUM CHL 20 Meq TABLET PO SCH ×2 (11:58→22:16)
[2020-02-16] MEDS: ENOXAPARIN SOD 150 MG/1 ML SYRINGE SC SCH (11:58)
[2020-02-16] MEDS: levoFLOXacin 500 MG TAB PO SCH (11:58)
--- NOTE | 2020-02-16 12:00 | NUR ---
WOUND CARE NOTE: IN TO SEE PATIENT AT THIS TIME FOR WOUND RE-EVALUATION. PATIENT HAS CURRENT KISHORE SCORE OF 14. PATIENT'S DRESSING TO RIGHT FOOT REMOVED AT THIS TIME. PATIENT HAS LIGHT SEROUS DRAINAGE NOTED. ENTORE OPEN WOUND MEASURES 3.5 X 2.5 CM. WOUND IS GRANULATING WELL, WITH BEEFY RED GRANULATION NOTED IN 100 PERCENT OF WOUND BED. THERE REMAINS A 0.5 X 0.5 X 1.8 WOUND CAVITY NOTED. THIS IS MUCH SMALLER THAN AT LAST EXAM. CLEANSED, PHOTOGRAPHED, PACKED, AND DRESSED WOUND AT THIS TIME. RECOMMEND: CHANGE FROM 1/2 INCH IODOFORM TO 1/4 INCH IODOFORM PACKING, CONTINUATION WITH ALL OTHER WOUND CARE ORDERS PREVIOUSLY PRESCRIBED BY MD. WOUND CARE TEAM WILL CONTINUE TO MONITOR. Addendum: 02/16/20 at 1917 by Renée Ruiz RN Amended: Links added.
--- NOTE | 2020-02-16 18:58 | NUR ---
Closing urban design consultant patient is comfortably resting in bed, no s/s of distress/sob noted/stated. Bed at lowest locked position and call light within reach. Guards at bedside for safety. Will endorse care to NOC RN.
--- NOTE | 2020-02-16 19:20 | NUR ---
RECEIVED PATIENT FROM DAY SHIFT RN. PATIENT RESTING IN BED. NO S/S OF DISTRESS NOTED. DENIED PAIN FOR NOW. DRESSING ON RIGHT FOOT C/D/I. POC INSTRUCTED AND ENCOURAGED PATIENT TO CALL FOR YARN WEIGHT AND STRENGTH TESTER IF NEEDED. BED IN LOWEST POSITION WITH SIDE RAILS UP X 2. CALL SERRA WITHIN REACH. ALARM ON. GUARDS AT BEDSIDE. CONTINUE TO MONITOR FOR CHANGES Q1H AND PRN.
--- NOTE | 2020-02-17 00:31 | NUR ---
PATIENT SLEEPING. NO S/S OF DISTRESS AND PAIN NOTED. CONTINUE TO MONITOR.
[2020-02-17] MEDS: LACTULOSE 20Gm/30ML SOLN PO SCH ×6 (01:42→21:55)
[2020-02-17 05:00] VITALS: BP 107/67
[2020-02-17] MEDS: PIPERACILLIN-TAZOB 3.375GM 100 ML IV SCH ×3 (05:40→19:18)
[2020-02-17] MEDS: FUROSEMIDE 40 MG/4 ML VIAL IV SCH ×2 (05:41→17:35)
[2020-02-17 08:00] VITALS: BP 106/61
[2020-02-17 09:00] VITALS: BP 106/61
[2020-02-17] MEDS: SODIUM CHLOR 0.9% PF (SALINE LOCK) 10ML VIAL/SYR IV SCH ×2 (10:23→21:56)
[2020-02-17] MEDS: levoFLOXacin 500 MG TAB PO SCH (10:23)
[2020-02-17] MEDS: POTASSIUM CHL 20 Meq TABLET PO SCH ×2 (10:23→21:55)
[2020-02-17] MEDS: ENOXAPARIN SOD 150 MG/1 ML SYRINGE SC SCH (10:23)
[2020-02-17] MEDS: BACLOFEN 10 MG TAB PO SCH ×2 (10:23→21:55)
--- NOTE | 2020-02-17 12:32 | NUR ---
Nutrition Followup Note Wt 132.9 Pt is eating meals again. Per RN doc pt po is 100%. Pt reports eating again, spoke to pt and again reinforced how important it is for pt to eat to heal his wounds. Pt confirmed understanding Est. Needs: 8315-6071 kcals (14-17 kcal/kgBW) 138-173 gms/day/kg Adj BW. Will continue to monitor pertinent labs and reassess nutrient need prn. Labs: BUN 22H, other labs WNL Skin: Morgan scale 16 mod risk, pt with wounds per director decision support. refer to WC notes for details GI: Pt had 1 BM on 02/15 per director decision support. PES: 1) Obesity r/t energy intake in excess of energy needs aeb 149% IBW and BMI of 37.0 kg/m2 2) Resolved: Altered nutrition related lab values r/t current medical condition elev bili, hypocalc, hypoalb Will continue to monitor PO intake, skin status, pertinent labs and weight trend. F/u in 3-5 days. Rec: 1) Continue to closely monitor pt PO intake to meet at least 75% of meals. 2) Consider a MVI with 500mg VitC BID. 3) Continue current plan of care.
[2020-02-17 14:00] VITALS: BP 97/56
[2020-02-17 16:58] VITALS: BP 102/57
--- NOTE | 2020-02-17 19:20 | NUR ---
Closing night stocker patient is comfortably resting in bed, no s/s of distress/sob noted/stated. Bed at lowest locked position and call light within reach. Guards at bedside for safety. Will endorse care to NOC RN
[2020-02-17 22:00] VITALS: BP 124/66
[2020-02-18] MEDS: PIPERACILLIN-TAZOB 3.375GM 100 ML IV SCH ×5 (00:01→23:57)
[2020-02-18] MEDS: LACTULOSE 20Gm/30ML SOLN PO SCH ×6 (02:00→21:38)
[2020-02-18 05:00] VITALS: BP 115/70
[2020-02-18] MEDS: FUROSEMIDE 40 MG/4 ML VIAL IV SCH ×2 (05:34→17:54)
--- NOTE | 2020-02-18 07:20 | NUR ---
OPENING SHIFT NOTE Assumed care of patient from [facility] shift RN. Patient is alert and oriented x4, no signs of distress noted, patient denies pain. Patient was updated on the plan of care and states that he wants to leave AMA. Patient was educated on the risks of leaving AMA and verbalized understanding. Patient is an Inmate, the guards stated they are unable to take the patient without discharge orders. Will inform MD about patient wishes. Dressing noted to right foot, clean dry and intact. Cuff noted to patient right upper extremity and bilateral lower extremities No skin breakdown or circulatory issues noted. Bed is locked, in the lowest position, side rails upx2 and call light is in reach. Patient was encouraged to call for assistance as needed.
[2020-02-18 08:43] VITALS: BP 104/61
[2020-02-18] MEDS: SODIUM CHLOR 0.9% PF (SALINE LOCK) 10ML VIAL/SYR IV SCH ×2 (09:52→21:53)
[2020-02-18] MEDS: ENOXAPARIN SOD 150 MG/1 ML SYRINGE SC SCH (09:53)
[2020-02-18] MEDS: POTASSIUM CHL 20 Meq TABLET PO SCH ×2 (09:53→21:53)
[2020-02-18] MEDS: BACLOFEN 10 MG TAB PO SCH ×2 (09:53→21:53)
[2020-02-18] MEDS: levoFLOXacin 500 MG TAB PO SCH (09:53)
--- NOTE | 2020-02-18 11:08 | NUR ---
AMA Note TIFFANY RICH states they want to leave the hospital Against Medical Advice (AMA). Patient encouraged to stay for further treatment/stabilization. Bang Schmitz MD notified of patient's wishes. Patient advised of the risks and benefits of leaving AMA. Patient verbalized understanding. Patient encouraged to return to the ER if symptoms do not improve or worsen. PICC line removed, catheter intact, pressure dressing applied, Patient tolerated well.
--- NOTE | 2020-02-18 12:51 | NUR ---
JEANNETTE TALKED PATIENT INTO STAYING AMA JERRY, JANETH AWARE, NEW ORDER FOR PICC HEAD OF CARE HOME CAME AND SPOKE TO THE PATIENT AND THE PATIENT'S MOTHER.
[2020-02-18 13:00] VITALS: BP 115/69
[2020-02-18 13:51] LABS: INR 1.09 (0.9-1.15); Partial Thromboplastin Time 33.2 sec (23.64-32.05)
--- NOTE | 2020-02-18 15:40 | NUR ---
WOUND CARE DRESSING CHANGE Wound cleansed with wound pillowcase cleaner, pat dry with sterile gauze. Wound packed with 1/4 inch iodoform wound packing with 1 in strip left out. Wound was covered with Xeroform, 4x4 gauze and Kerlix. Patient tolerated well.
[2020-02-18 16:57] VITALS: BP 112/74
--- NOTE | 2020-02-18 17:28 | NUR ---
ROSEMARIE MIDLINE PLACED by PICC nurse.
--- NOTE | 2020-02-18 17:32 | NUR ---
Midline Placement: Patient educated on need for midline placement. All risks and benefits explained and all questions and concerns addresses prior to procedure. 18g/10cm midline inserted via RIGHT BRACHIAL vein using Ultrasound. Sterile technique utilized. Blood return obtained from THE lumen and flushed easily with NS using proper technique. Midline secured with saline lock; biodisc and occlusive dressing applied. Primary RN notified. Midline lot # [id number].
[2020-02-18] MEDS: HYDROcodone-ACET 10/325MG TAB PO PRN (17:55)
[2020-02-18 22:00] VITALS: BP 100/51
[2020-02-19] MEDS: LACTULOSE 20Gm/30ML SOLN PO SCH ×6 (01:47→21:46)
[2020-02-19 05:00] VITALS: BP 93/53
[2020-02-19] MEDS: PIPERACILLIN-TAZOB 3.375GM 100 ML IV SCH ×4 (05:49→23:38)
[2020-02-19] MEDS: FUROSEMIDE 40 MG/4 ML VIAL IV SCH ×2 (06:00→17:40)
--- NOTE | 2020-02-19 08:00 | NUR ---
RECEIVED PATIENT ALERT AND ORIENTED X4, NOT IN DISTRESS, CLEAR LUNG SOUNDS IN BILATERAL UPPER AND DIMINISHED IN BILATERAL LOWER LUNG LOBES, RR=18 SAT=95%, DEEP BREATHING AND COUGHING ENCOURAGED, VERBALIZED AND DEMONSTRATED WELL, HEART R=68, DENIED SOB AND CHEST PAIN AT THIS MOMENT, ABDOMEN SOFT WITH ACTIVE BS, TOLERATED 100% OF PROVIDED BREAKFAST TRAY, LAST MB=02/18/20 REPORTED, GENERAL SKIN INTACT WARM TO TOUCH, RADIAL AND LT. PEDAL PULSES PALPABLE, RT. FOOT SURGICAL SITE COVERED WITH DRY AND INTACT DRESSING, LAST WOUND DRESSING CHANGE 02/18/20 AND NEXT WOUND DRESSING CHANGE ON 02/20/20 REPORTED, RESTING ON BED, DENIED PAIN, HEAD OF BED ELEVATED, BED ON LOW POSITION, RAILS UP X2, CALL LIGHT ON REACH, GUARDS AT BED SIDE, WILL CONTINUE MONITORING.
[2020-02-19 09:00] VITALS: BP 104/56
[2020-02-19] MEDS: SODIUM CHLOR 0.9% PF (SALINE LOCK) 10ML VIAL/SYR IV SCH ×2 (10:57→21:46)
[2020-02-19] MEDS: POTASSIUM CHL 20 Meq TABLET PO SCH ×2 (10:58→21:44)
[2020-02-19] MEDS: BACLOFEN 10 MG TAB PO SCH ×2 (10:58→21:45)
[2020-02-19] MEDS: ENOXAPARIN SOD 150 MG/1 ML SYRINGE SC SCH (10:58)
[2020-02-19] MEDS: levoFLOXacin 500 MG TAB PO SCH (10:58)
[2020-02-19 13:00] VITALS: BP 126/76
[2020-02-19 17:19] VITALS: BP 98/53
--- NOTE | 2020-02-19 19:07 | NUR ---
NOT IN DISTRESS, BED REST AND DENIED PAIN DURING THE WHOLE SHIFT, REPORT WAS GIVEN TO THE FIELD CREW CHIEF RN.
--- NOTE | 2020-02-19 19:10 | NUR ---
OPENING SHIFT NOTE Assumed care of patient who is A&O x4. Currently on RA with no s/s of distress. Denies pain at this time. Midline in right upper arm is intact and patent. Flushed with 10ml NS. Dressing to right foot is CDI. Patient is shackled to the bed at bilateral ankles and right wrist. Guards are present at the bedside x2. Bed is in low locked position with side rails up x2. Call light is within reach and patient encouraged to call for assistance when needed. Will continue to monitor for changes PRN.
[2020-02-19 22:00] VITALS: BP 107/60
--- NOTE | 2020-02-19 22:00 | NUR ---
PATIENT REFUSAL Refusing scheduled Lactulose. States he no longer needs it and has been passing stool without difficulty.
--- NOTE | 2020-02-19 22:15 | NUR ---
NUTRITION Patient requesting juice and crackers. Regular diet is ordered. Provided to patient as requested. Will continue monitoring.
[2020-02-20] MEDS: LACTULOSE 20Gm/30ML SOLN PO SCH ×6 (02:00→21:32)
--- NOTE | 2020-02-20 02:00 | NUR ---
PATIENT REFUSAL Refusing scheduled Lactulose. States he no longer needs it and has been passing stool without difficulty.
[2020-02-20 05:09] VITALS: BP 107/67
[2020-02-20] MEDS: FUROSEMIDE 40 MG/4 ML VIAL IV SCH ×2 (05:35→17:38)
[2020-02-20] MEDS: PIPERACILLIN-TAZOB 3.375GM 100 ML IV SCH ×3 (05:36→17:34)
--- NOTE | 2020-02-20 08:00 | NUR ---
RECEIVED PATIENT ALERT AND ORIENTED X4, NOT IN DISTRESS, CLEAR LUNG SOUNDS IN BILATERAL UPPER AND DIMINISHED IN BILATERAL LOWER LUNG 94%, DEEP BREATHING AND COUGHING ENCOURAGED, VERBALIZED AND DEMONSTRATED WELL, HEART R=76, DENIED SOB AND CHEST PAIN AT THIS MOMENT, ABDOMEN SOFT WITH ACTIVE BS, TOLERATED 100% OF PROVIDED BREAKFAST TRAY, LAST MB=02/18/20 REPORTED, GENERAL SKIN INTACT WARM TO TOUCH, BILATERAL LOWER EXTREMITIES EDEMA AND DISCOLORATION NOTED, RADIAL AND LT. PEDAL PULSES PALPABLE, RT. FOOT SURGICAL SITE COVERED WITH DRY AND INTACT DRESSING, RESTING ON BED, DENIED PAIN, HEAD OF BED ELEVATED, BED ON LOW POSITION, RAILS UP X2, CALL LIGHT ON REACH, GUARDS AT BED SIDE, DENIED PAIN, GUARDS INTHE ROOM AT BED SIDE, WILL CONTINUE MONITORING.
[2020-02-20 09:08] VITALS: BP 106/62
[2020-02-20] MEDS: levoFLOXacin 500 MG TAB PO SCH (10:22)
[2020-02-20] MEDS: POTASSIUM CHL 20 Meq TABLET PO SCH ×2 (10:22→21:31)
[2020-02-20] MEDS: BACLOFEN 10 MG TAB PO SCH ×2 (10:22→21:31)
[2020-02-20] MEDS: SODIUM CHLOR 0.9% PF (SALINE LOCK) 10ML VIAL/SYR IV SCH ×2 (10:22→21:33)
[2020-02-20] MEDS: ENOXAPARIN SOD 150 MG/1 ML SYRINGE SC SCH (10:23)
--- NOTE | 2020-02-20 11:53 | NUR ---
OUT OF BED ON WC TO BATHROOM, TOLERATED SHOWER, RT FOOT WOUND DRESSING WAS CHANGED ORDERED, TOLERATED WELL, BACK TO BED, RESTING ON BED, DENIED PAIN, WILL CONTINUE MONITORING.
[2020-02-20 13:00] VITALS: BP 103/60
--- NOTE | 2020-02-20 14:50 | NUR ---
Nutrition Followup Note Wt 142.2 kg Pt is eating meals again. pt is currently on regular diet with adequte Po fo 100% x 3 per RN doc Est. Needs: 2821-4091 kcals (14-17 kcal/kgBW) 138-173 gms/day/kg Adj BW. Will continue to monitor pertinent labs and reassess nutrient need prn. Labs: No new labs today 02/11: BUN 22H, other labs WNL Skin: Morgan scale 14 mod risk, pt with wounds per title i director. refer to WC notes for details GI: Pt had 1 BM on 02/15 per title i director. PES: 1) Obesity r/t energy intake in excess of energy needs aeb 149% IBW and BMI of 37.0 kg/m2 2) Resolved: Altered nutrition related lab values r/t current medical condition elev bili, hypocalc, hypoalb Will continue to monitor PO intake, skin status, pertinent labs and weight trend. F/u in 3-5 days. Rec: 1) Continue to closely monitor pt PO intake to meet at least 75% of meals. 2) Consider a MVI with 500mg VitC BID. 3) Continue current plan of care.
[2020-02-20 16:51] VITALS: BP 96/61
--- NOTE | 2020-02-20 19:30 | NUR ---
OPENING SHIFT NOTE Assumed care of patient who is A&O x4. Currently on RA with no s.s of distress. Denies pain at this time. Patient is wheelchair bound at baseline. Dressings to bilateral feet are CDI. Midline to right upper arm is intact and patent. Patient is shackled to bed at right wrist and bilateral ankles, with guards x2 at the bedside. POC discussed and patient verbalizes understanding. Bed is in low locked position with side rails up x2. Call light is within reach and patient encouraged to call for assistance when needed. Will continue to monitor for changes PRN.
--- NOTE | 2020-02-20 19:33 | NUR ---
NOT IN DISTRESS, BED REST AND DENIED PAIN DURING THE WHOLE SHIFT, REPORT WAS GIVEN TO THE ENGROSSER RN.
[2020-02-21] MEDS: LACTULOSE 20Gm/30ML SOLN PO SCH ×6 (02:00→21:53)
[2020-02-21 05:25] VITALS: BP 102/56
[2020-02-21] MEDS: PIPERACILLIN-TAZOB 3.375GM 100 ML IV SCH ×5 (05:56→23:56)
[2020-02-21] MEDS: FUROSEMIDE 40 MG/4 ML VIAL IV SCH ×2 (05:56→18:00)
[2020-02-21 06:02] LABS: Basophils # (auto) 0 10 ^3/uL (0-0.2); Basophils % (auto) 0.5 % (0.0-2.0); Eosinophils # (auto) 0.6 10 ^3/uL (0-0.8); Eosinophils % (auto) 11.6 % (0.0-7.0); Hematocrit 38.5 % (41.0-53.0); Hemoglobin 12.8 g/dL (13.5-17.5); Lymphocytes # (auto) 1.3 10 ^3/uL (0.4-5.4); Lymphocytes % (auto) 23.9 % (10.0-50.0); Mean Corpuscular Hgb Conc. 33.3 g/dL (32.0-36.0); Mean Corpuscular Volume 93.2 fL (80.0-100.0); Monocytes # (auto) 0.5 10 ^3/uL (0-1.3); Monocytes % (auto) 9.5 % (0.0-12.0); Neutrophils % (auto) 54.5 % (37.0-80.0); Nucleated Red Blood Cells % 0.1 %; Platelet Count (auto) 118 10^3/uL (140-450); Red Blood Cells 4.13 10^6/uL (4.5-5.90); Red Cell Distribution Width 15.8 % (11.8-14.3); White Blood Cell 5.4 10^3/uL (4.4-10.8)
[2020-02-21 06:16] LABS: Potassium 4.1 mmol/L (3.5-5.1)
[2020-02-21 06:26] LABS: Albumin 2.6 g/dL (3.4-5.0); BUN/Creatinine Ratio 14.1; Bilirubin, Total 0.7 mg/dL (0.2-1.0); Total Protein 6.5 g/dL (6.4-8.2)
--- NOTE | 2020-02-21 08:00 | NUR ---
Opening Shift Note Assumed care of patient, awake and alert. No S/S of distress/SOB or pain. With dressing on right dry and intact. Instructed on POC and to call for assist PRN, will continue to monitor for changes Q1hr and PRN.
[2020-02-21 09:00] VITALS: BP 100/57
[2020-02-21] MEDS: ENOXAPARIN SOD 150 MG/1 ML SYRINGE SC SCH (10:49)
[2020-02-21] MEDS: POTASSIUM CHL 20 Meq TABLET PO SCH ×2 (10:50→21:59)
[2020-02-21] MEDS: SODIUM CHLOR 0.9% PF (SALINE LOCK) 10ML VIAL/SYR IV SCH ×2 (10:50→21:59)
[2020-02-21] MEDS: levoFLOXacin 500 MG TAB PO SCH (10:50)
[2020-02-21] MEDS: BACLOFEN 10 MG TAB PO SCH ×2 (10:50→21:59)
[2020-02-21 13:00] VITALS: BP 98/55
[2020-02-21 17:00] VITALS: BP 99/46
--- NOTE | 2020-02-21 18:04 | NUR ---
Patient refused IV Lasix at this time.
[2020-02-21 22:00] VITALS: BP 107/56
[2020-02-22] MEDS: LACTULOSE 20Gm/30ML SOLN PO SCH ×6 (01:40→21:43)
[2020-02-22 05:00] VITALS: BP 115/62
[2020-02-22] MEDS: FUROSEMIDE 40 MG/4 ML VIAL IV SCH ×2 (06:00→18:00)
[2020-02-22] MEDS: PIPERACILLIN-TAZOB 3.375GM 100 ML IV SCH ×3 (06:13→18:16)
--- NOTE | 2020-02-22 07:30 | NUR ---
Opening Shift Note Assumed care of patient, awake and alert. No S/S of distress/SOB or pain. Bed in lowest and locked position with side rails up x2 and call light in reach. Instructed on POC and to call for assist PRN, will continue to monitor for changes Q1hr and PRN.
[2020-02-22 08:00] VITALS: BP 118/65
[2020-02-22] MEDS: ENOXAPARIN SOD 150 MG/1 ML SYRINGE SC SCH (10:00)
[2020-02-22] MEDS: BACLOFEN 10 MG TAB PO SCH ×2 (10:30→21:43)
[2020-02-22] MEDS: levoFLOXacin 500 MG TAB PO SCH (10:30)
--- NOTE | 2020-02-22 10:30 | NUR ---
WOUND CARE WOUND CARE INITIATED AND DRESSING CHANGED PER MD ORDERS.
[2020-02-22] MEDS: SODIUM CHLOR 0.9% PF (SALINE LOCK) 10ML VIAL/SYR IV SCH ×2 (10:31→21:43)
[2020-02-22] MEDS: POTASSIUM CHL 20 Meq TABLET PO SCH ×2 (10:31→21:43)
[2020-02-22 12:00] VITALS: BP 104/53
[2020-02-22] MEDS: HYDROcodone-ACET 10/325MG TAB PO PRN (16:21)
[2020-02-22 16:46] VITALS: BP 110/65
[2020-02-22 21:53] VITALS: BP 95/51
[2020-02-23] MEDS: PIPERACILLIN-TAZOB 3.375GM 100 ML IV SCH ×4 (00:22→17:41)
[2020-02-23] MEDS: LACTULOSE 20Gm/30ML SOLN PO SCH ×6 (01:47→21:28)
[2020-02-23 04:43] VITALS: BP 106/58
[2020-02-23] MEDS: FUROSEMIDE 40 MG/4 ML VIAL IV SCH ×2 (06:00→17:41)
[2020-02-23 09:00] VITALS: BP 104/57
[2020-02-23] MEDS: BACLOFEN 10 MG TAB PO SCH ×2 (09:29→21:28)
[2020-02-23] MEDS: levoFLOXacin 500 MG TAB PO SCH (09:29)
[2020-02-23] MEDS: POTASSIUM CHL 20 Meq TABLET PO SCH ×2 (10:00→21:27)
[2020-02-23] MEDS: ENOXAPARIN SOD 150 MG/1 ML SYRINGE SC SCH (10:00)
[2020-02-23] MEDS: SODIUM CHLOR 0.9% PF (SALINE LOCK) 10ML VIAL/SYR IV SCH ×2 (10:38→21:27)
[2020-02-23 13:00] VITALS: BP 101/58
[2020-02-23 17:00] VITALS: BP 105/62
[2020-02-23] MEDS: OXYCODONE W/ ACETAMINOPHEN 5/325MG TABLET PO PRN (21:28)
[2020-02-23 21:40] VITALS: BP 111/58
[2020-02-24] MEDS: PIPERACILLIN-TAZOB 3.375GM 100 ML IV SCH ×4 (01:06→17:42)
[2020-02-24] MEDS: LACTULOSE 20Gm/30ML SOLN PO SCH ×6 (01:26→22:00)
[2020-02-24 04:37] VITALS: BP 115/76
[2020-02-24] MEDS: FUROSEMIDE 40 MG/4 ML VIAL IV SCH ×2 (05:40→18:00)
--- NOTE | 2020-02-24 05:40 | NUR ---
PT IS REFUSING THIS AM DOSE OF LASIX AND STATES, " THAT GIVES ME A HEADACHE AND I DON'T WANT TO TAKE ANY MORE LASIX." PT EDUCATED ON MEDICATION AND HE VERBALIZES UNDERSTANDING AND STILL REFUSES MED.
--- NOTE | 2020-02-24 06:53 | NUR ---
PHARMACY NOTIFIED THAT ANBX ARE NOT AVAILABLE FOR 0700 DOSE OF ZERBAXA. Addendum: 02/24/20 at 0701 by FRANCESCA MATA RN CORRECTION WRONG PT
--- NOTE | 2020-02-24 08:30 | NUR ---
SPOKE TO DR. FOWLER. RN UPDATED DR. FOWLER ON THE PATIENTS PREVIOUS LABS AND HOLDING OF LOVENOX. MD AWARE. NO ORDERS FOR NEW LABS. PER OKAY TO CHANGE LOVENOX TO 40MG AND OKAY TO GIVE THE NEW LOVENOX ORDER. PATIENT MAY ALSO SHOWER. NEW ORDERS RECEIVED, READ BACK AND VERIFIED. SEE EMR FOR ORDERS.
[2020-02-24 09:00] VITALS: BP 106/56
[2020-02-24] MEDS: POTASSIUM CHL 20 Meq TABLET PO SCH ×2 (10:00→22:19)
[2020-02-24] MEDS: levoFLOXacin 500 MG TAB PO SCH (10:37)
[2020-02-24] MEDS: BACLOFEN 10 MG TAB PO SCH ×2 (10:37→22:19)
[2020-02-24] MEDS: ENOXAPARIN SOD 40 MG/0.4 ML SYRINGE SC SCH (10:37)
[2020-02-24] MEDS: SODIUM CHLOR 0.9% PF (SALINE LOCK) 10ML VIAL/SYR IV SCH ×2 (10:38→22:19)
--- NOTE | 2020-02-24 11:16 | NUR ---
WOUND CARE NOTE: Wound care in to see patient for reevaluation of wounds. Patient continue resting in bed in Rm. 286B. Patient is awake, alert and oriented. He's in no stated pain at this time. He's self turning and repositioning. His Morgan score is 15. Patient's Rt thakkar display intact pink scar from dry resolved blister. He's receiving BID/PRN cleaning and application of Hydraguard cream to help moisturize dry BLE skin. Patient just had shower and no dressing noted to Rt foot. Patient's R foot wound s/p amputation of Rt 4th toe continue to improve. Open wound area measuring 1.2 x2cm, no measurable depth. Wound bed is covered with 100% red granulation tissue ,areli wound is pink,no drainage/odor noted. Cleansed wound with wound cleanser, patted dry with sterile gauze. covered with Xeroform dressing, padded with layers of 4x4's gauze, wrapped with two Kerlix, secured with tape. Patient tolerated well. New photograph of wound are taken for reference. Bed in low position, call melendez within reach, all safety precautions in placed. Guards at bedside. RECOMMENDATION: Continuation of all wound care orders prescribed by MD except packing as there's no wound depth needing packing, continue with skin/wound plan of care, continue monitoring by wound care while patient is hospitalized. Addendum: 02/24/20 at 1704 by Mackenzie Valdez RN Amended: Links added.
[2020-02-24] MEDS: OXYCODONE W/ ACETAMINOPHEN 5/325MG TABLET PO PRN (11:17)
[2020-02-24 13:00] VITALS: BP 111/66
--- NOTE | 2020-02-24 15:51 | NUR ---
Nutrition Followup Note Wt 145.4 kg Pt is on a Regular diet with a good appetite aeb 100 x4 PO intake per RN doc. Pt with no noted distress per RN doc. Will continue to closely monitor pertinent labs, PO intake and skin status prn. Will followup in 3-5 days Est. Needs: 0826-3036 kcals (14-17 kcal/kgBW) 138-173 gms/day/kg Adj BW. Will continue to monitor pertinent labs and reassess nutrient need prn. Labs: Cl 112 L, Gluc 142 H, Ca 8.0 L, Alb 2.6 L Skin: Morgan scale 15 mod risk, pt with wounds per animal pathologist. refer to WC notes for details GI: Pt had 1 BM on 02/21/ per animal pathologist. PES: 1) Obesity r/t energy intake in excess of energy needs aeb 149% IBW and BMI of 37.0 kg/m2 2) Resolved: Altered nutrition related lab values r/t current medical condition elev bili, hypocalc, hypoalb Will continue to monitor PO intake, skin status, pertinent labs and weight trend. F/u in 3-5 days. Rec: 1) Continue to closely monitor pt PO intake to meet at least 75% of meals. 2) Consider a MVI with 500mg VitC BID. 3) Continue current plan of care.
[2020-02-24 17:00] VITALS: BP 119/56
--- NOTE | 2020-02-24 19:45 | NUR ---
Opening Shift Note Assumed care of patient, awake and alert. No S/S of distress/SOB or pain. Dressing to right foot dry and intact. Instructed on POC and to call for assist PRN, patient verbalized understanding. Safety precaution in place, call light within reach, skilled nursing guards at bedside, will continue to monitor for changes Q1hr and PRN.
[2020-02-24 22:00] VITALS: BP 129/70
[2020-02-25] MEDS: PIPERACILLIN-TAZOB 3.375GM 100 ML IV SCH ×4 (00:13→18:01)
[2020-02-25 00:35] VITALS: BP 129/70
[2020-02-25] MEDS: LACTULOSE 20Gm/30ML SOLN PO SCH ×6 (02:00→21:40)
[2020-02-25 05:59] VITALS: BP 104/65
[2020-02-25] MEDS: FUROSEMIDE 40 MG/4 ML VIAL IV SCH ×2 (06:36→17:53)
--- NOTE | 2020-02-25 07:40 | NUR ---
opening note Assumed care of patient, awake and alert. No S/S of distress/SOB or pain. Instructed on POC reevaluation of foot by . Instructed to call for assist PRN, patient verbalized understanding. Safety precaution in place, call light within reach, [facility] guards at bedside, will continue to monitor for changes Q1hr and PRN.
[2020-02-25 09:00] VITALS: BP 106/52
[2020-02-25] MEDS: SODIUM CHLOR 0.9% PF (SALINE LOCK) 10ML VIAL/SYR IV SCH ×2 (10:00→21:39)
[2020-02-25] MEDS: levoFLOXacin 500 MG TAB PO SCH (10:00)
[2020-02-25] MEDS: BACLOFEN 10 MG TAB PO SCH ×2 (10:30→21:40)
[2020-02-25] MEDS: POTASSIUM CHL 20 Meq TABLET PO SCH ×2 (10:30→21:39)
--- NOTE | 2020-02-25 10:30 | NUR ---
medication refusal patient refused lactulose at 1030.
[2020-02-25] MEDS: ENOXAPARIN SOD 40 MG/0.4 ML SYRINGE SC SCH (12:55)
[2020-02-25 13:00] VITALS: BP 108/60
--- NOTE | 2020-02-25 14:40 | NUR ---
DR. ALEJANDRO AT BEDSIDE PATIENT REEVALUATION, PT IS TO HAVE AN ALLOGRAFT/SKIN GRAFT ON 02/27/20, TO THE RIGHT 4TH TOE STUMP. PATIENT TO BE NPO AFTER MIDNIGHT ON 02/27/20. PATIENT VERBALIZED UNDERSTANDING.
--- NOTE | 2020-02-25 14:45 | NUR ---
PATIENT HAS C/O BACK PAIN REQUEST PAIN MEDICATION.
[2020-02-25] MEDS: HYDROcodone-ACET 10/325MG TAB PO PRN (15:03)
[2020-02-25 17:00] VITALS: BP 103/63
--- NOTE | 2020-02-25 19:35 | NUR ---
Opening Shift Note Assumed care of patient, awake and alert. No S/S of distress/SOB or pain. Dressing to right foot dry and intact. Instructed on POC and to call for assist PRN, patient verbalized understanding. Safety precaution in place, call light within reach, shelter guards at bedside, will continue to monitor for changes Q1hr and PRN.
[2020-02-26] MEDS: PIPERACILLIN-TAZOB 3.375GM 100 ML IV SCH ×4 (00:05→17:53)
[2020-02-26] MEDS: LACTULOSE 20Gm/30ML SOLN PO SCH ×6 (02:00→21:13)
[2020-02-26 05:00] VITALS: BP 105/59
[2020-02-26] MEDS: FUROSEMIDE 40 MG/4 ML VIAL IV SCH ×3 (06:00→21:14)
[2020-02-26 09:00] VITALS: BP_SYST 105; BP_SYST 133; BP_DIAS 66; BP_DIAS 70
--- NOTE | 2020-02-26 11:00 | NUR ---
Refused Lactulose Pt stated he is going regularly and doesn't need it anymore. He said he told Dr. Schmitz.
[2020-02-26] MEDS: levoFLOXacin 500 MG TAB PO SCH (11:03)
[2020-02-26] MEDS: SODIUM CHLOR 0.9% PF (SALINE LOCK) 10ML VIAL/SYR IV SCH ×2 (11:03→21:22)
[2020-02-26] MEDS: BACLOFEN 10 MG TAB PO SCH ×2 (11:04→21:22)
[2020-02-26] MEDS: ENOXAPARIN SOD 40 MG/0.4 ML SYRINGE SC SCH (11:04)
[2020-02-26] MEDS: POTASSIUM CHL 20 Meq TABLET PO SCH ×2 (11:04→21:22)
[2020-02-26] MEDS: OXYCODONE W/ ACETAMINOPHEN 5/325MG TABLET PO PRN (11:45)
[2020-02-26 13:00] VITALS: BP 104/64
[2020-02-26 17:00] VITALS: BP 124/78
--- NOTE | 2020-02-26 21:14 | NUR ---
PATIENT IS AWAKE ALERT AND ORIENTED X4 LYING IN BED COMFORTABLY. INFORMED PATIENT PLAN OF CARE AND MEDICATIONS DUE FOR THE EVENING. PATIENT REFUSES TO TAKE LACTULOSE AND LASIX, BUT AGREES TO TAKE EVERYTHING ELSE. PATIENT HAS SCHEDULED SKINGRAFT TOMORROW WITH DR PALMER. PATIENT INSTRUCTED NOT TO EAT OR DRINK AFTER MIDNIGHT. PATIENT VERBALIZES UNDERSTANDING NO QUESTIONS ASKED.
--- NOTE | 2020-02-26 22:00 | NUR ---
PATIENT REFUSED VITALS AT 2200.
[2020-02-27] MEDS: PIPERACILLIN-TAZOB 3.375GM 100 ML IV SCH ×4 (00:06→17:40)
[2020-02-27] MEDS: LACTULOSE 20Gm/30ML SOLN PO SCH ×3 (00:07→10:00)
[2020-02-27] MEDS: OXYCODONE W/ ACETAMINOPHEN 5/325MG TABLET PO PRN ×2 (03:34→12:47)
[2020-02-27 05:01] VITALS: BP 116/72
--- NOTE | 2020-02-27 08:00 | NUR ---
SKIN GRAFT PATIENT WAS TAKEN DOWN TO PRE-OP IN HOSPITAL BED FOR SKIN GRAFT WITH DR. FLORES.
[2020-02-27 08:36] VITALS: BP 113/69
[2020-02-27] MEDS ORDERED: ceFAZolin 1GM VL ONE (08:43)
[2020-02-27] MEDS ORDERED: ROPIVACAINE 0.5% (5MG/ML) 20ML AMPULE IJ ONE (08:44)
[2020-02-27] MEDS ORDERED: MIDAZOLAM HCL 1MG/1ML-2 ML VIAL ONE (09:05)
[2020-02-27] MEDS ORDERED: METOCLOPRAMIDE HCL 5MG/ml INJ 2ml VIAL ONE (09:07)
[2020-02-27] MEDS ORDERED: LIDOCAINE 2% (LOCAL ANESTH.) PF 5ml SDV ONE (09:09)
[2020-02-27] MEDS ORDERED: PROPOFOL 10 MG/ML 20 ML IV ONE ×2 (09:09)
[2020-02-27] MEDS ORDERED: diphenhdrAMINE HCL 50 MG/1 ML VL ONE (09:10)
[2020-02-27] MEDS ORDERED: fentaNYL CITRATE 100 MCG/2 ML VL ONE (09:15)
[2020-02-27] MEDS ORDERED: HYDROmorphone HCL 2 MG/ML VL IV PRN (10:00)
[2020-02-27] MEDS ORDERED: ACCU-CHEK COMFORT CURVE STRIP VI ONE (10:00)
[2020-02-27] MEDS ORDERED: ONDANSETRON HCL 4 MG/2 ML VIAL IV PRN (10:00)
[2020-02-27] MEDS ORDERED: NALOXONE HCL 0.4 MG/ML VIAL IV PRN (10:00)
--- NOTE | 2020-02-27 10:30 | NUR ---
Side rails x 4 Patient insisting on having all 4 side rails up. It was explained that this is considered a restraint. Patient became very upset. This nurse confirmed with the charge nurse that 4 side rails are a restraint. The patient is an inmate, guards at bedside. Charge nurse stated it was ok for the patient to have the side rails up due to the patient being alert and oriented x 4 with guards at bedside.
[2020-02-27] MEDS: levoFLOXacin 500 MG TAB PO SCH (10:53)
[2020-02-27] MEDS: BACLOFEN 10 MG TAB PO SCH ×2 (10:53→22:05)
[2020-02-27] MEDS: SODIUM CHLOR 0.9% PF (SALINE LOCK) 10ML VIAL/SYR IV SCH ×2 (10:53→22:06)
[2020-02-27] MEDS: POTASSIUM CHL 20 Meq TABLET PO SCH ×2 (10:53→22:06)
[2020-02-27] MEDS: ENOXAPARIN SOD 40 MG/0.4 ML SYRINGE SC SCH (10:54)
[2020-02-27 13:00] VITALS: BP_SYST 118; BP_SYST 121; BP_DIAS 70; BP_DIAS 77
--- NOTE | 2020-02-27 15:59 | NUR ---
ML dressing change Changed ML dressing to ROSEMARIE.
[2020-02-27] MEDS: FUROSEMIDE 40 MG/4 ML VIAL IV SCH (17:39)
[2020-02-27 22:00] VITALS: BP 110/61
[2020-02-28] MEDS: PIPERACILLIN-TAZOB 3.375GM 100 ML IV SCH ×5 (00:10→23:53)
[2020-02-28 05:00] VITALS: BP 111/67
[2020-02-28] MEDS: FUROSEMIDE 40 MG/4 ML VIAL IV SCH ×2 (06:00→17:36)
[2020-02-28 09:00] VITALS: BP 138/83
[2020-02-28] MEDS: BACLOFEN 10 MG TAB PO SCH ×2 (10:26→22:24)
[2020-02-28] MEDS: levoFLOXacin 500 MG TAB PO SCH (10:26)
[2020-02-28] MEDS: POTASSIUM CHL 20 Meq TABLET PO SCH ×2 (10:26→22:24)
[2020-02-28] MEDS: SODIUM CHLOR 0.9% PF (SALINE LOCK) 10ML VIAL/SYR IV SCH ×2 (10:26→22:25)
[2020-02-28] MEDS: ENOXAPARIN SOD 40 MG/0.4 ML SYRINGE SC SCH (10:27)
--- NOTE | 2020-02-28 11:47 | NUR ---
Left Heel Skin Tear Left heel skin tear, per patient, he stepped on chain and tore open. Site cleaned with wound cleanser, non adherent dressing applied, wound pictures taken.
--- NOTE | 2020-02-28 12:30 | NUR ---
Opening Note Patient Care assumed from Lynn SPENCE. Patient currently shows no signs of distress, respirations even and unlabored, requesting to shower after completion of antibiotic infusion. Addendum: 02/28/20 at 1231 by DARRIUS LAURA RN RN Wrong Time 0730
[2020-02-28 13:00] VITALS: BP 114/72
[2020-02-28 17:01] VITALS: BP 124/70
--- NOTE | 2020-02-28 19:11 | NUR ---
Closing Note Report given to Lynn DAVE RN
[2020-02-28 22:00] VITALS: BP 108/69
[2020-02-29] MEDS: OXYCODONE W/ ACETAMINOPHEN 5/325MG TABLET PO PRN ×2 (00:01→16:02)
[2020-02-29 05:00] VITALS: BP 114/67
[2020-02-29] MEDS: PIPERACILLIN-TAZOB 3.375GM 100 ML IV SCH ×3 (05:13→18:00)
[2020-02-29] MEDS: FUROSEMIDE 40 MG/4 ML VIAL IV SCH ×2 (05:27→18:00)
--- NOTE | 2020-02-29 07:30 | NUR ---
Opening Note Assumed patient care from JOLIE RN.
[2020-02-29 09:00] VITALS: BP 109/62
[2020-02-29] MEDS: POTASSIUM CHL 20 Meq TABLET PO SCH ×2 (10:24→21:46)
[2020-02-29] MEDS: SODIUM CHLOR 0.9% PF (SALINE LOCK) 10ML VIAL/SYR IV SCH ×2 (10:24→21:46)
[2020-02-29] MEDS: BACLOFEN 10 MG TAB PO SCH ×2 (10:25→21:46)
[2020-02-29] MEDS: levoFLOXacin 500 MG TAB PO SCH (10:25)
[2020-02-29] MEDS: ENOXAPARIN SOD 40 MG/0.4 ML SYRINGE SC SCH (10:25)
--- NOTE | 2020-02-29 15:58 | NUR ---
Nutrition Followup Note Wt 147.5 kg Pt is on a Regular diet with a good appetite aeb 100 PO intake per RN doc. Pt with no noted distress per RN doc. Will continue to closely monitor pertinent labs, PO intake and skin status prn. Will followup in 5-7 days Est. Needs: 0691-8653 kcals (14-17 kcal/kgBW) 138-173 gms/day/kg Adj BW. Will continue to monitor pertinent labs and reassess nutrient need prn. Labs: Cl 112 L, Gluc 142 H, Ca 8.0 L, Alb 2.6 L Skin: Morgan scale 13 mod risk, pt with wounds per superintendent refuse disposal. refer to WC notes for details GI: Pt had 1 BM on 02/28 per superintendent refuse disposal. PES: 1) Obesity r/t energy intake in excess of energy needs aeb 149% IBW and BMI of 37.0 kg/m2 2) Resolved: Altered nutrition related lab values r/t current medical condition elev bili, hypocalc, hypoalb Will continue to monitor PO intake, skin status, pertinent labs and weight trend. F/u in 3-5 days. Rec: 1) Continue to closely monitor pt PO intake to meet at least 75% of meals. 2) Consider a MVI with 500mg VitC BID. 3) Continue current plan of care.
[2020-02-29 17:02] VITALS: BP 121/63
--- NOTE | 2020-02-29 18:00 | NUR ---
Refused Med Patient refusing Lasix at this time, patient educated on effect of Lasix and need for continuing med administration, patient verbalized understanding states he does not need medication and swelling on his legs is his "baseline."
[2020-02-29 21:00] VITALS: BP 119/67
[2020-03-01] MEDS: PIPERACILLIN-TAZOB 3.375GM 100 ML IV SCH ×4 (00:15→17:27)
[2020-03-01] MEDS: FUROSEMIDE 40 MG/4 ML VIAL IV SCH ×2 (06:00→17:26)
[2020-03-01 08:15] VITALS: BP 123/63
[2020-03-01 09:00] VITALS: BP 123/63
--- NOTE | 2020-03-01 09:45 | NUR ---
Patient wanted to take a shower. Covered the right upper midline site, right foot surgical dressing. REX Spring came over to assist the patient to the wheelchair. Two male guards at bedside.
--- NOTE | 2020-03-01 10:30 | NUR ---
Patient still in the shower at this time.
--- NOTE | 2020-03-01 11:10 | NUR ---
Patient sitting in wheelchair, Opti foam rolled with Kerlix applied on left foot. Patient back to bed. Two male guards at bedside.
[2020-03-01] MEDS: OXYCODONE W/ ACETAMINOPHEN 5/325MG TABLET PO PRN (11:24)
--- NOTE | 2020-03-01 11:24 | NUR ---
Patient stated his back, both feet hurts. Percocet PO given for pain as ordered.
[2020-03-01] MEDS: BACLOFEN 10 MG TAB PO SCH ×2 (11:25→21:32)
[2020-03-01] MEDS: POTASSIUM CHL 20 Meq TABLET PO SCH ×2 (11:25→21:31)
[2020-03-01] MEDS: SODIUM CHLOR 0.9% PF (SALINE LOCK) 10ML VIAL/SYR IV SCH ×2 (11:25→21:31)
[2020-03-01] MEDS: levoFLOXacin 500 MG TAB PO SCH (11:25)
[2020-03-01] MEDS: ENOXAPARIN SOD 40 MG/0.4 ML SYRINGE SC SCH (11:27)
[2020-03-01 17:00] VITALS: BP 128/78
[2020-03-01 22:00] VITALS: BP 120/71
[2020-03-02] MEDS: PIPERACILLIN-TAZOB 3.375GM 100 ML IV SCH ×4 (00:20→17:14)
[2020-03-02 05:00] VITALS: BP 110/75
[2020-03-02] MEDS: FUROSEMIDE 40 MG/4 ML VIAL IV SCH ×2 (05:43→17:13)
--- NOTE | 2020-03-02 06:05 | NUR ---
Patient refused LASIX medication this am. Denies pain for the whole night.
[2020-03-02 08:52] VITALS: BP 117/71
[2020-03-02] MEDS: levoFLOXacin 500 MG TAB PO SCH (09:35)
[2020-03-02] MEDS: POTASSIUM CHL 20 Meq TABLET PO SCH ×2 (09:35→21:38)
[2020-03-02] MEDS: SODIUM CHLOR 0.9% PF (SALINE LOCK) 10ML VIAL/SYR IV SCH ×2 (09:36→21:47)
[2020-03-02] MEDS: ENOXAPARIN SOD 40 MG/0.4 ML SYRINGE SC SCH (09:36)
[2020-03-02] MEDS: BACLOFEN 10 MG TAB PO SCH ×2 (09:36→21:38)
--- NOTE | 2020-03-02 10:15 | NUR ---
WOUND CARE NOTE: Wound care in to see patient for reevaluation of wounds. Patient continue resting in bed in Rm. 286B. Patient is awake, alert and oriented. He's in no stated pain at this time. He's self turning and repositioning. His Morgan score is 17. Patient's Rt thakkar display intact pink scar from dry resolved blister. Dry peeling skin to BLE looks improving. He's receiving BID/PRN cleaning and application of Hydraguard cream to help moisturize dry BLE skin. Patient's undergone allograft application to R foot wound amputation site of Rt 4th toe. Patient's R foot has C/D/I dressing with brown CoBan bandage. Per Dr. Pineda's order, do not change dressing. Wound to L heel happened two days ago from stepping on chain and pulling dry skin is now closed and has thin brown scab, clean and dry, asymptomatic,left open to air. Patient's skin/ wound care education provided, patent verbalized understanding. Patient tolerated well. Bed in low position, call melendez within reach, all safety precautions in placed. Guards at bedside. RECOMMENDATION: Do not change Rt. foot wound dressing per Dr. Pienda. Follow Dr. Pineda wound care order, continue monitoring by wound care while patient is hospitalized. Addendum: 03/02/20 at 1341 by Mackenzie Valdez RN Amended: Links added.
[2020-03-02 13:29] VITALS: BP 125/61
--- NOTE | 2020-03-02 15:00 | NUR ---
DR MCQUEEN SAW PATIENT. NEW ORDERS FOR BMP AND CMP IN THE MORNING.
[2020-03-02] MEDS: OXYCODONE W/ ACETAMINOPHEN 5/325MG TABLET PO PRN (16:23)
[2020-03-02 17:20] VITALS: BP 139/83
--- NOTE | 2020-03-02 17:24 | NUR ---
PT REFUSING LASIX, HE REPORTS IT GIVES HIM HEADACHES. PT EDUCATED LASIX WILL HELP REDUCE THE EDEMA IN BILATERAL LOWER EXTREMITIES. PT REFUSED. ASSESSED PT RIGHT FOOT, SOFT BANDAGE IN PLACE, BANDAGE DOESN'T SEEM TO BE INTERFERING WITH CIRCULATION. CAP REFILL LESS THAN 3 SECONDS ON BIG TOE. ASSESSED LEFT FOOT, 2 PLUS NON PITTING EDEMA NOTED, CAP REFILL LESS THAN 3 SECONDS. WILL CONTINUE TO MONITOR.
[2020-03-02 21:00] VITALS: BP 126/67
[2020-03-03 05:00] VITALS: BP 119/72
[2020-03-03] MEDS: PIPERACILLIN-TAZOB 3.375GM 100 ML IV SCH ×5 (05:54→23:46)
[2020-03-03] MEDS: FUROSEMIDE 40 MG/4 ML VIAL IV SCH ×2 (05:55→18:24)
[2020-03-03 06:27] LABS: Basophils # (auto) 0 10 ^3/uL (0-0.2); Basophils % (auto) 0.5 % (0.0-2.0); Eosinophils # (auto) 0.5 10 ^3/uL (0-0.8); Eosinophils % (auto) 10.1 % (0.0-7.0); Hematocrit 39.1 % (41.0-53.0); Hemoglobin 12.9 g/dL (13.5-17.5); Lymphocytes # (auto) 1.3 10 ^3/uL (0.4-5.4); Lymphocytes % (auto) 27.7 % (10.0-50.0); Mean Corpuscular Hgb Conc. 33.1 g/dL (32.0-36.0); Mean Corpuscular Volume 93.6 fL (80.0-100.0); Monocytes # (auto) 0.5 10 ^3/uL (0-1.3); Monocytes % (auto) 10.5 % (0.0-12.0); Neutrophils # (auto) 2.4 10 ^3/uL (1.6-8.6); Neutrophils % (auto) 51.2 % (37.0-80.0); Nucleated Red Blood Cells % 0.1 %; Platelet Count (auto) 119 10^3/uL (140-450); Red Blood Cells 4.18 10^6/uL (4.5-5.90); Red Cell Distribution Width 15.9 % (11.8-14.3); White Blood Cell 4.6 10^3/uL (4.4-10.8)
[2020-03-03 06:54] LABS: Albumin 2.7 g/dL (3.4-5.0); Calcium 8.2 mg/dL (8.5-10.1); Potassium 4.1 mmol/L (3.5-5.1)
[2020-03-03 06:59] LABS: BUN/Creatinine Ratio 17.7; Bilirubin, Total 0.9 mg/dL (0.2-1.0); Total Protein 6.7 g/dL (6.4-8.2)
--- NOTE | 2020-03-03 07:20 | NUR ---
Opening Note Assumed patient care from JOLIE RN.
[2020-03-03 09:00] VITALS: BP_SYST 128; BP_SYST 134; BP_DIAS 69; BP_DIAS 80
[2020-03-03] MEDS: SODIUM CHLOR 0.9% PF (SALINE LOCK) 10ML VIAL/SYR IV SCH ×2 (10:00→21:25)
[2020-03-03] MEDS: levoFLOXacin 500 MG TAB PO SCH (10:48)
[2020-03-03] MEDS: ENOXAPARIN SOD 40 MG/0.4 ML SYRINGE SC SCH (10:48)
[2020-03-03] MEDS: BACLOFEN 10 MG TAB PO SCH ×2 (10:48→21:25)
[2020-03-03] MEDS: POTASSIUM CHL 20 Meq TABLET PO SCH ×2 (10:48→21:25)
[2020-03-03 13:00] VITALS: BP 122/78
--- NOTE | 2020-03-03 13:00 | NUR ---
Patient in shower. Patient in shower right foot dressing an midline covered. Will continue care.
--- NOTE | 2020-03-03 14:15 | NUR ---
Pain Patient complaining of pain 03/28 primarily located on lower extremities. Patient s/p right 4th toe amputation and bilateral cellulitis. 3+ edema noted at this time. Will medicate patient as per doctors orders and reassess pain in 1 hr.
[2020-03-03] MEDS: OXYCODONE W/ ACETAMINOPHEN 5/325MG TABLET PO PRN (14:22)
--- NOTE | 2020-03-03 15:22 | NUR ---
pain reassessment Per patient pain is now at 2/10. No further interventions required at this time as patient states this is a comfortable level.
[2020-03-03 16:47] VITALS: BP 132/70
[2020-03-03 21:00] VITALS: BP 113/66
[2020-03-04 04:30] VITALS: BP 120/75
[2020-03-04] MEDS: FUROSEMIDE 40 MG/4 ML VIAL IV SCH ×2 (06:00→17:40)
[2020-03-04] MEDS: PIPERACILLIN-TAZOB 3.375GM 100 ML IV SCH ×4 (06:06→23:20)
--- NOTE | 2020-03-04 08:10 | NUR ---
OPENING SHIFT NOTE Assumed care of patient, PT is awake and alert. No S/S of distress/SOB, or pain. Guards at bedside. Instructed on POC. Call light within reach patient. Instructed PT to call for assistance, patient verbalized understanding. Will continue to monitor for changes Q1hr and PRN.
[2020-03-04 09:14] VITALS: BP 123/83
[2020-03-04] MEDS: SODIUM CHLOR 0.9% PF (SALINE LOCK) 10ML VIAL/SYR IV SCH ×2 (10:48→21:25)
[2020-03-04] MEDS: POTASSIUM CHL 20 Meq TABLET PO SCH ×2 (10:50→21:26)
[2020-03-04] MEDS: ENOXAPARIN SOD 40 MG/0.4 ML SYRINGE SC SCH (10:50)
[2020-03-04] MEDS: levoFLOXacin 500 MG TAB PO SCH (10:50)
[2020-03-04] MEDS: BACLOFEN 10 MG TAB PO SCH ×2 (10:50→21:26)
[2020-03-04 12:55] VITALS: BP 106/62
[2020-03-04 17:00] VITALS: BP 127/77
[2020-03-04 21:34] VITALS: BP 104/62
[2020-03-04] MEDS: OXYCODONE W/ ACETAMINOPHEN 5/325MG TABLET PO PRN (23:19)
[2020-03-05 05:00] VITALS: BP 117/75
[2020-03-05] MEDS: FUROSEMIDE 40 MG/4 ML VIAL IV SCH ×2 (05:34→18:00)
[2020-03-05] MEDS: PIPERACILLIN-TAZOB 3.375GM 100 ML IV SCH ×4 (05:35→23:42)
--- NOTE | 2020-03-05 08:04 | NUR ---
OPENING SHIFT NOTE Assumed care of patient. PT is awake and alert. Will get up to shower. No S/S of distress/SOB, or pain. Instructed on POC. Call light within reach patient. Instructed PT to call for assistance, patient verbalized understanding. Will continue to monitor for changes Q1hr and PRN.
[2020-03-05 09:00] VITALS: BP 106/59
--- NOTE | 2020-03-05 09:00 | NUR ---
DR MCQUEEN AT BEDSIDE TO SEE PT.
[2020-03-05] MEDS: levoFLOXacin 500 MG TAB PO SCH (10:49)
[2020-03-05] MEDS: BACLOFEN 10 MG TAB PO SCH ×2 (10:49→21:49)
[2020-03-05] MEDS: SODIUM CHLOR 0.9% PF (SALINE LOCK) 10ML VIAL/SYR IV SCH ×2 (10:49→21:47)
[2020-03-05] MEDS: POTASSIUM CHL 20 Meq TABLET PO SCH ×2 (10:50→21:47)
[2020-03-05] MEDS: ENOXAPARIN SOD 40 MG/0.4 ML SYRINGE SC SCH (10:50)
--- NOTE | 2020-03-05 11:28 | NUR ---
Assessment Patient is a 59-year old male who is alert and oriented. Informed patient he has the right to speak to a social media assistant regarding medical conditions and concerns regarding his stay.
[2020-03-05 12:43] VITALS: BP 114/67
--- NOTE | 2020-03-05 15:10 | NUR ---
Nutrition Followup Note Wt 99.4 kg Pt is on a Regular diet with a good appetite aeb 100% PO intake per RN doc. Pt with no noted distress per RN doc. Will continue to closely monitor pertinent labs, PO intake and skin status prn. Will followup in 5-7 days Est. Needs: [id number] kcals (14-17 kcal/kgBW) 138-173 gms/day/kg Adj BW. Will continue to monitor pertinent labs and reassess nutrient need prn. Labs: Cl 110 H, Gluc 142 H, Ca 8.2 L, Alb 2.7 L Skin: Morgan scale 13 mod risk, pt with wounds per mail clerk. refer to WC notes for details GI: Pt had 1 BM on 03/03 per mail clerk. PES: 1) Obesity r/t energy intake in excess of energy needs aeb 149% IBW and BMI of 37.0 kg/m2 2) Resolved: Altered nutrition related lab values r/t current medical condition elev bili, hypocalc, hypoalb Will continue to monitor PO intake, skin status, pertinent labs and weight trend. F/u in 3-5 days. Rec: 1) Continue to closely monitor pt PO intake to meet at least 75% of meals. 2) Consider a MVI with 500mg VitC BID. 3) Continue current plan of care.
[2020-03-05 17:00] VITALS: BP 122/71
--- NOTE | 2020-03-05 19:30 | NUR ---
Opening Shift Note Assumed care of patient, awake and alert. No S/S of distress/SOB or pain. Instructed on POC and to call for assist PRN, will continue to monitor for changes Q1hr and PRN. Two guards at bedside.
[2020-03-05 20:00] VITALS: BP 110/54
[2020-03-05 22:00] VITALS: BP 110/54
[2020-03-06] MEDS: OXYCODONE W/ ACETAMINOPHEN 5/325MG TABLET PO PRN (03:32)
--- NOTE | 2020-03-06 03:32 | NUR ---
Pain Patient c/o pain 8/ to joints and lower legs, pain medication administered.
--- NOTE | 2020-03-06 04:32 | NUR ---
RE Pain Patient resting with eyes closed, no signs of pain or distress. will continue to monitor.
[2020-03-06 05:00] VITALS: BP 106/56
[2020-03-06] MEDS: FUROSEMIDE 40 MG/4 ML VIAL IV SCH ×2 (06:00→18:00)
[2020-03-06] MEDS: PIPERACILLIN-TAZOB 3.375GM 100 ML IV SCH ×3 (06:18→18:26)
--- NOTE | 2020-03-06 06:30 | NUR ---
Refused Lasix Patient refused Lasix, patient educated but still refused, will continue to monitor.
--- NOTE | 2020-03-06 07:01 | NUR ---
Closing shift note No s/s of distress noted, endorsed care to dayshift nurse.
--- NOTE | 2020-03-06 08:27 | NUR ---
OPENING SHIFT NOTE Resumed care of patient. PT is eating breakfast comfortably in bed. No S/S of distress/SOB, or pain. Guards at bedside. Instructed on POC. Call light within reach patient. Instructed PT to call for assistance, patient verbalized understanding. Will continue to monitor for changes Q1hr and PRN.
[2020-03-06 09:00] VITALS: BP 109/57
[2020-03-06] MEDS: ENOXAPARIN SOD 40 MG/0.4 ML SYRINGE SC SCH (11:32)
[2020-03-06] MEDS: SODIUM CHLOR 0.9% PF (SALINE LOCK) 10ML VIAL/SYR IV SCH ×2 (11:32→22:48)
[2020-03-06] MEDS: BACLOFEN 10 MG TAB PO SCH ×2 (11:32→22:48)
[2020-03-06] MEDS: levoFLOXacin 500 MG TAB PO SCH (11:33)
[2020-03-06] MEDS: POTASSIUM CHL 20 Meq TABLET PO SCH ×2 (11:33→22:48)
[2020-03-06 13:00] VITALS: BP 111/59
[2020-03-06 17:00] VITALS: BP 134/73
[2020-03-06 22:00] VITALS: BP 116/74
[2020-03-07] MEDS: PIPERACILLIN-TAZOB 3.375GM 100 ML IV SCH ×5 (00:10→23:44)
[2020-03-07] MEDS: OXYCODONE W/ ACETAMINOPHEN 5/325MG TABLET PO PRN ×2 (03:00→12:29)
[2020-03-07 05:00] VITALS: BP 111/59
[2020-03-07] MEDS: FUROSEMIDE 40 MG/4 ML VIAL IV SCH ×2 (06:00→17:35)
--- NOTE | 2020-03-07 07:30 | NUR ---
Opening Shift Note Assumed care of patient, awake and alert. No S/S of distress/SOB or pain. Dressing to right foot dry and intact. Instructed on POC and to call for assist PRN, patient verbalized understanding. Safety precaution in place, call light within reach, care home guards at bedside, will continue to monitor for changes Q1hr and PRN.
[2020-03-07 09:00] VITALS: BP 109/60
[2020-03-07] MEDS: POTASSIUM CHL 20 Meq TABLET PO SCH ×2 (09:40→22:07)
[2020-03-07] MEDS: SODIUM CHLOR 0.9% PF (SALINE LOCK) 10ML VIAL/SYR IV SCH ×2 (09:40→22:07)
[2020-03-07] MEDS: ENOXAPARIN SOD 40 MG/0.4 ML SYRINGE SC SCH (09:41)
[2020-03-07] MEDS: BACLOFEN 10 MG TAB PO SCH ×2 (09:41→22:07)
[2020-03-07] MEDS: levoFLOXacin 500 MG TAB PO SCH (09:41)
--- NOTE | 2020-03-07 12:15 | NUR ---
Pain Patient c/o pain 8/10 to lower legs, pain medication administered per patient request and as per order.
[2020-03-07 13:00] VITALS: BP 120/76
--- NOTE | 2020-03-07 13:20 | NUR ---
pain reassessment Per patient pain is now at 0/10. No further interventions required at this time.
[2020-03-07 17:00] VITALS: BP 126/70
--- NOTE | 2020-03-07 22:21 | NUR ---
PATIENT REFUSED VITALS AT 2200.
[2020-03-08] MEDS: OXYCODONE W/ ACETAMINOPHEN 5/325MG TABLET PO PRN ×2 (01:40→11:15)
--- NOTE | 2020-03-08 02:56 | NUR ---
CARE ENDORSED TO DAY SHIFT RN ANDERS
--- NOTE | 2020-03-08 03:20 | NUR ---
Opening Shift Note: Assumed care of patient, awake and alert. No S/S of distress/SOB. Patient states no pain at this time. Patient informed this nurse that he will be refusing his 0600 lasix, patient educated on need for lasix, patient continued to refuse. Bed in lowest locked position, side rails up x 2, call light within reach. Guards at bedside. Patient instructed on POC and to call for assist PRN, will continue to monitor for changes Q1hr and PRN.
[2020-03-08 04:43] VITALS: BP 100/58
[2020-03-08] MEDS: FUROSEMIDE 40 MG/4 ML VIAL IV SCH ×2 (05:08→16:43)
[2020-03-08] MEDS: PIPERACILLIN-TAZOB 3.375GM 100 ML IV SCH ×3 (05:23→17:56)
[2020-03-08] MEDS: levoFLOXacin 500 MG TAB PO SCH (08:54)
[2020-03-08] MEDS: SODIUM CHLOR 0.9% PF (SALINE LOCK) 10ML VIAL/SYR IV SCH ×2 (08:54→22:00)
[2020-03-08] MEDS: BACLOFEN 10 MG TAB PO SCH ×2 (08:54→22:00)
[2020-03-08] MEDS: POTASSIUM CHL 20 Meq TABLET PO SCH ×2 (08:54→22:00)
[2020-03-08] MEDS: ENOXAPARIN SOD 40 MG/0.4 ML SYRINGE SC SCH (08:55)
[2020-03-08 09:09] VITALS: BP 118/71
--- NOTE | 2020-03-08 12:24 | NUR ---
DR. HERZOG: Dr. Celeste Lagos at bedside.
[2020-03-08 12:37] VITALS: BP 115/79
--- NOTE | 2020-03-08 14:33 | NUR ---
PICC LINE DRESSING CHANGED USING CLEAN STERILE TECHNIQUE, PATIENT TOLERATED WELL. WILL CONTINUE TO MONITOR.
[2020-03-08 16:27] VITALS: BP 117/69
--- NOTE | 2020-03-08 18:48 | NUR ---
CLOSING NOTE: Patient resting in bed. No S/S of SOB or distress at this time. Care endorsed to NOC RN.
--- NOTE | 2020-03-08 19:40 | NUR ---
Opening Shift Note Assumed care of patient, awake, AAOx4. Guards at bedside. No S/S of distress/SOB or pain. Dressing to right leg noted. On room air and wheelchair at bedside. Bed in lowest locked position, side rails up x2, call light within reach. Instructed on POC and to call for assist PRN, will continue to monitor for changes Q1hr and PRN.
[2020-03-08 22:16] VITALS: BP 108/75
[2020-03-09 05:27] VITALS: BP 111/68
[2020-03-09] MEDS: FUROSEMIDE 40 MG/4 ML VIAL IV SCH ×2 (06:00→17:34)
[2020-03-09] MEDS: PIPERACILLIN-TAZOB 3.375GM 100 ML IV SCH ×5 (06:11→23:32)
[2020-03-09 06:50] LABS: Basophils # (auto) 0 10 ^3/uL (0-0.2); Basophils % (auto) 0.7 % (0.0-2.0); Eosinophils # (auto) 0.5 10 ^3/uL (0-0.8); Eosinophils % (auto) 9.9 % (0.0-7.0); Hematocrit 42.1 % (41.0-53.0); Hemoglobin 13.9 g/dL (13.5-17.5); Lymphocytes # (auto) 1.2 10 ^3/uL (0.4-5.4); Lymphocytes % (auto) 24.7 % (10.0-50.0); Mean Corpuscular Hemoglobin 30.5 pg (28.0-32.0); Mean Corpuscular Hgb Conc. 32.9 g/dL (32.0-36.0); Mean Corpuscular Volume 92.5 fL (80.0-100.0); Monocytes # (auto) 0.4 10 ^3/uL (0-1.3); Monocytes % (auto) 9.5 % (0.0-12.0); Neutrophils # (auto) 2.6 10 ^3/uL (1.6-8.6); Neutrophils % (auto) 55.2 % (37.0-80.0); Nucleated Red Blood Cells % 0.3 %; Platelet Count (auto) 139 10^3/uL (140-450); Red Blood Cells 4.56 10^6/uL (4.5-5.90); Red Cell Distribution Width 15.9 % (11.8-14.3); White Blood Cell 4.7 10^3/uL (4.4-10.8)
[2020-03-09 07:10] LABS: Calcium 8.5 mg/dL (8.5-10.1); Potassium 4.2 mmol/L (3.5-5.1)
--- NOTE | 2020-03-09 07:10 | NUR ---
Opening Shift Note: Assumed care of patient, awake and alert. No S/S of distress/SOB or pain. Bed in lowest locked position, side rails up x 2, call light within reach. Guards at bedside. Patient instructed on POC and to call for assist PRN, will continue to monitor for changes Q1hr and PRN.
[2020-03-09 07:13] LABS: Albumin 2.8 g/dL (3.4-5.0); BUN/Creatinine Ratio 15.5
[2020-03-09 07:15] LABS: Bilirubin, Total 0.8 mg/dL (0.2-1.0); Total Protein 7.1 g/dL (6.4-8.2)
[2020-03-09 09:00] VITALS: BP 111/63
[2020-03-09] MEDS: levoFLOXacin 500 MG TAB PO SCH (09:18)
[2020-03-09] MEDS: POTASSIUM CHL 20 Meq TABLET PO SCH ×2 (09:18→22:05)
[2020-03-09] MEDS: ENOXAPARIN SOD 40 MG/0.4 ML SYRINGE SC SCH (09:18)
[2020-03-09] MEDS: SODIUM CHLOR 0.9% PF (SALINE LOCK) 10ML VIAL/SYR IV SCH ×2 (09:18→22:05)
[2020-03-09] MEDS: BACLOFEN 10 MG TAB PO SCH ×2 (09:18→22:04)
--- NOTE | 2020-03-09 11:00 | NUR ---
WOUND CARE NOTE: PATIENT IS S/P ALLOGRAFT TO WOUND ON RIGHT FOOT RECENTLY. DR. PALMER HAS PLACED ORDER FOR NO DRESSING CHANGES. NO FURTHER WOUND CARE MONITORING IS NEEDED AT THIS TIME. WILL DEFER ALL WOUND CARE RECOMMENDATIONS TO DR. PALMER AT THIS POINT.
[2020-03-09 13:00] VITALS: BP 116/70
[2020-03-09 17:00] VITALS: BP 142/73
--- NOTE | 2020-03-09 18:45 | NUR ---
CLOSING NOTE: Patient resting in bed. No S/S of pain or distress at this time. Care endorsed to NOC RN.
--- NOTE | 2020-03-09 19:00 | NUR ---
OPENING NOTE Received report from day shift RN. Patient is currently resting with HOB elevated and no s/s of distress noted. Wheelchair is at bedside. Will educate patient on POC. Bed is in lowest/locked position with side rails up X's 2 and call light is within reach of patient. Dressing to right foot is C/D/I. Guards present at bedside. Will continue care.
[2020-03-09 22:00] VITALS: BP 116/66
[2020-03-10] MEDS: PIPERACILLIN-TAZOB 3.375GM 100 ML IV SCH (05:47)
[2020-03-10] MEDS: FUROSEMIDE 40 MG/4 ML VIAL IV SCH (05:52)
--- NOTE | 2020-03-10 07:59 | NUR ---
DR. HERZOG: Dr. Lagos at bedside. Discussed POC with patient.
[2020-03-10] MEDS: POTASSIUM CHL 20 Meq TABLET PO SCH (09:30)
[2020-03-10] MEDS: levoFLOXacin 500 MG TAB PO SCH (09:30)
[2020-03-10] MEDS: ENOXAPARIN SOD 40 MG/0.4 ML SYRINGE SC SCH (09:30)
[2020-03-10] MEDS: SODIUM CHLOR 0.9% PF (SALINE LOCK) 10ML VIAL/SYR IV SCH (09:30)
[2020-03-10] MEDS: BACLOFEN 10 MG TAB PO SCH (09:30)
--- NOTE | 2020-03-10 10:51 | NUR ---
AMA Note TIFFANY RICH states they want to leave the hospital Against Medical Advice (AMA). Patient encouraged to stay for further treatment/stabilization. Fallon Moore MD notified of patient's wishes. Patient advised of the risks and benefits of leaving AMA. Patient verbalized understanding. Patient encouraged to return to the ER if symptoms do not improve or worsen. Right forearm midline DC'd using clean sterile technique pressure dressing applied.
== END 2020-03-10 10:48 | disposition left against medical advice (07) | DRG 574 ==
LOC: ER 11:05 → EDBD 11:05 → EEVIPCON 11:05 → OVERFLOW 11:06 → WEST WING 17:00
PROVIDERS: ADMIT Internal Medicine; ATTEND Internal Medicine
PROC: B41D1ZZ Fluoroscopy of Aorta and Bilateral Lower Extremity Arteries using Low Osmolar Contrast (ICD-10-PCS; 2020-01-21)
PROC: 02HV33Z Insertion of Infusion Device into Superior Vena Cava, Percutaneous Approach (ICD-10-PCS; 2020-01-22)
PROC: 0Y6V0Z0 Detachment at Right 4th Toe, Complete, Open Approach (ICD-10-PCS; principal; 2020-01-23 12:05)
PROC: 0HRMXK3 Replacement of Right Foot Skin with Nonautologous Tissue Substitute, Full Thickness, External Approach (ICD-10-PCS; 2020-02-27)
PROC: 0LBV0ZZ Excision of Right Foot Tendon, Open Approach (ICD-10-PCS; 2020-02-27)
DX: L03.115 Cellulitis of right lower limb (principal); M86.8X7 Other osteomyelitis, ankle and foot; L97.929 Non-pressure chronic ulcer of unspecified part of left lower leg with unspecified severity; E44.0 Moderate protein-calorie malnutrition; L03.116 Cellulitis of left lower limb; S81.801A Unspecified open wound, right lower leg, initial encounter; G89.29 Other chronic pain; X58.XXXA Exposure to other specified factors, initial encounter; E66.01 Morbid (severe) obesity due to excess calories; L97.519 Non-pressure chronic ulcer of other part of right foot with unspecified severity; I11.0 Hypertensive heart disease with heart failure; I50.9 Heart failure, unspecified; I87.2 Venous insufficiency (chronic) (peripheral); Z99.3 Dependence on wheelchair; Z89.421 Acquired absence of other right toe(s); Z74.01 Bed confinement status; Z68.35 Body mass index [BMI] 35.0-35.9, adult; Y93.89 Activity, other specified; Y92.89 Other specified places as the place of occurrence of the external cause; Y99.8 Other external cause status; Z53.29 Procedure and treatment not carried out because of patient's decision for other reasons
CPT/HCPCS: 36415; 36569; 71045; 73630; 75716; 78315; 80048; 80053; 80202; 81001; 82962; 83605; 83735; 85025; 85610; 85730; 87040; 87070; 87075; 87077; 87186; 87205; 93005; 93306; 93926; 93970; 96365; 96375; 99152; 99153; 99291; C1776; G0378; J0690; J0696; J1100; J2001; J2250; J2405; J2543; J2704; Q9956; Q9967

== ENCOUNTER 2020-04-20 12:35 | Inpatient (IN) | payer OTHER ==
[~2020-04-20] VITALS: Ht 200.7 cm; Wt 158.8 kg
[2020-04-20] MEDS ORDERED: SODIUM CHLORIDE 0.9% 1,000 ML IV ONE (13:50)
[2020-04-20] MEDS ORDERED: SODIUM CHLORIDE 0.9% 500 ML IVB ONE (13:50)
[2020-04-20 14:59] LABS: Basophils # (auto) 0 10 ^3/uL (0-0.2); Basophils % (auto) 0.3 % (0.0-2.0); Eosinophils # (auto) 0 10 ^3/uL (0-0.8); Eosinophils % (auto) 0.3 % (0.0-7.0); Hematocrit 42.6 % (41.0-53.0); Hemoglobin 13.7 g/dL (13.5-17.5); Lymphocytes # (auto) 1.1 10 ^3/uL (0.4-5.4); Lymphocytes % (auto) 16.1 % (10.0-50.0); Mean Corpuscular Hemoglobin 30.2 pg (28.0-32.0); Mean Corpuscular Hgb Conc. 32.1 g/dL (32.0-36.0); Mean Corpuscular Volume 94.1 fL (80.0-100.0); Monocytes # (auto) 0.5 10 ^3/uL (0-1.3); Monocytes % (auto) 7.7 % (0.0-12.0); Neutrophils # (auto) 5.2 10 ^3/uL (1.6-8.6); Neutrophils % (auto) 75.6 % (37.0-80.0); Platelet Count (auto) 132 10^3/uL (140-450); Red Blood Cells 4.53 10^6/uL (4.5-5.90); Red Cell Distribution Width 14.8 % (11.8-14.3); White Blood Cell 6.9 10^3/uL (4.4-10.8)
[2020-04-20] MEDS ORDERED: LORazepam 2MG/ML-1ML VIAL IV ONE ×2 (15:15→20:15)
[2020-04-20 15:16] LABS: Alanine Aminotransferase 19 U/L (16-61); Albumin 2.7 g/dL (3.4-5.0); Anion Gap 4 (5-15); Aspartate Aminotransferase 13 U/L (15-37); BUN/Creatinine Ratio 15.9; Blood Urea Nitrogen 10 mg/dL (7-18); Calcium 7.9 mg/dL (8.5-10.1); Carbon Dioxide 28 mmol/L (21-32); Chloride 112 mmol/L (98-107); GFR African American 169 mL/min; GFR Non-African American 140 mL/min; Glucose 102 mg/dL (74-106); Magnesium 2.2 mg/dL (1.6-2.6); Potassium 3.8 mmol/L (3.5-5.1); Sodium 144 mmol/L (136-145)
[2020-04-20 15:21] LABS: Alkaline Phosphatase 91 U/L (45-117); Bilirubin, Total 0.7 mg/dL (0.2-1.0); Total Protein 6.7 g/dL (6.4-8.2)
[2020-04-20] MEDS: VANCOMYCIN 1GM/250ML 250 ML IV ONE ×2 (17:30→19:00)
[2020-04-20 17:47] LABS: Amphetamine Screen, Urine NEGATIVE (NEGATIVE); Barbiturate Scree,Urine NEGATIVE (NEGATIVE); Benzodiazephine Screen, Urine NEGATIVE (NEGATIVE); Cannabinoid Screen, Urine NEGATIVE (NEGATIVE); Cocaine Screen, Urine NEGATIVE (NEGATIVE); Opiate Scree,Urine NEGATIVE (NEGATIVE); Phencyclidine Screen, Urine NEGATIVE (NEGATIVE)
[2020-04-20 18:20] LABS: Urine Bacteria NONE SEEN /hpf (None Seen); Urine Blood Negative /uL (Negative); Urine Mucus FEW (None Seen); Urine Specific Gravity 1.029 (1.001-1.035); Urine WBC <1 /hpf (0 - 3)
[2020-04-20] MEDS ORDERED: ENOXAPARIN SOD 40 MG/0.4 ML SYRINGE SC ONE (23:15)
[2020-04-20] MEDS ORDERED: cloNIDine HCL 0.1 MG TAB PO PRN (23:15)
[2020-04-21] MEDS ORDERED: LORazepam 2MG/ML-1ML VIAL IV PRN (00:30)
[2020-04-21 03:01] VITALS: BP 138/79
[2020-04-21] MEDS ORDERED: ENOXAPARIN SOD 40 MG/0.4 ML SYRINGE SC SCH (10:00)
== END 2020-04-21 03:40 | disposition left against medical advice (07) | DRG 81 ==
LOC: EEVIPCON 12:35 → EDBD 12:35 → ER 12:35 → OVERFLOW 12:36
PROVIDERS: ADMIT Internal Medicine; ATTEND Internal Medicine
DX: R40.0 Somnolence (principal); E44.0 Moderate protein-calorie malnutrition; R09.89 Other specified symptoms and signs involving the circulatory and respiratory systems; I87.2 Venous insufficiency (chronic) (peripheral); I10 Essential (primary) hypertension; Z53.29 Procedure and treatment not carried out because of patient's decision for other reasons
CPT/HCPCS: 36415; 70450; 71045; 80053; 80307; 81001; 83735; 84443; 84484; 85025; 87040; 87077; 87186; 87205; 93005; 96361; 96365; 96366; 96375; G0378